=== PATIENT | male | born 1980 | race Hispanic/Latino ===

== ENCOUNTER 2020-12-27 10:03 | Observation (INO) | payer OTHER ==
--- OUTSIDE RECORDS SUMMARY | 2020-12-27 10:14 | XMS REPORT | Continuity of Care Document ---
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 21:25:00 [facility] Systolic (mm Hg) 2020-06-12 14:58:00 [facility] Diastolic (mm Hg) 2020-06-12 14:58:00 [facility] Heart Rate 2020-06-12 14:58:00 [facility] Respitory Rate 2020-06-12 14:58:00 [facility] [place] Height 2020-06-12 14:58:00 190.5 cm [facility] BMI Calculated 2020-06-12 14:58:00 [facility] Weight 2020-06-12 14:58:00 [facility] Weight 2018-08-21 15:12:00 [facility] BMI Calculated 2018-08-21 15:12:00 [facility] [place] Temperature Oral (F) 2018-08-21 15:12:00 98.4 F [facility] Respitory Rate 2018-08-21 15:12:00 [facility] Heart Rate 2018-08-21 15:12:00 [facility] Systolic (mm Hg) 2018-08-21 15:12:00 [facility] Diastolic (mm Hg) 2018-08-21 15:12:00 [facility] Height 2018-08-21 15:12:00 182.88 cm [facility] Weight 2016-10-15 18:54:00 [facility] BMI Calculated 2016-10-15 18:54:00 [facility] Height 2016-10-15 18:54:00 190.5 cm [facility] Systolic (mm Hg) 2016-10-15 18:54:00 [facility] Diastolic (mm Hg) 2016-10-15 18:54:00 [facility] Respitory Rate 2016-10-15 18:54:00 [facility] Height 2016-09-20 14:31:00 190.5 cm [facility] BMI Calculated 2016-09-20 14:31:00 [facility] Weight 2016-09-20 14:31:00 [facility] Heart Rate 2016-09-20 14:31:00 [facility] Systolic (mm Hg) 2016-09-20 14:31:00 [facility] Diastolic (mm Hg) 2016-09-20 14:31:00 [facility] Weight 2016-07-19 16:27:00 [facility] BMI Calculated 2016-07-19 16:27:00 [facility] Height 2016-07-19 16:27:00 190.5 cm [facility] Systolic (mm Hg) 2016-07-19 16:27:00 [facility] Diastolic (mm Hg) 2016-07-19 16:27:00 [facility] Heart Rate 2016-07-19 16:27:00 [facility] Temperature Oral (F) 2016-07-19 16:27:00 98.8 F [facility] Respitory Rate 2016-07-19 16:27:00 [facility] Weight 2012-10-18 16:33:00 [facility] Height 2012-10-18 16:33:00 187.96 cm [facility] Respitory Rate 2012-10-18 16:33:00 [facility] Systolic (mm Hg) 2012-10-18 16:33:00 [facility] Diastolic (mm Hg) 2012-10-18 16:33:00 [facility] Heart Rate 2012-10-18 16:33:00 [facility] Weight 2012-09-04 19:55:00 [facility] Height 2012-09-04 19:55:00 187.96 cm [facility] Respitory Rate 2012-09-04 19:53:00 [facility] Heart Rate 2012-09-04 19:53:00 [facility] Diastolic (mm Hg) 2012-09-04 19:53:00 [facility] Systolic (mm Hg) 2012-09-04 19:53:00 [facility] Diastolic (mm Hg) 2012-08-28 19:56:00 [facility] Systolic (mm Hg) 2012-08-28 19:56:00 [facility] Heart Rate 2012-08-28 19:56:00 [facility] Respitory Rate 2012-08-28 19:56:00 [facility] [place] Height 2012-08-28 19:56:00 187.96 cm [facility] Weight 2012-08-28 19:56:00 [facility] Weight 2012-05-29 19:32:00 [facility] Height 2012-05-29 19:32:00 187.96 cm [facility] Heart Rate 2012-05-29 19:32:00 [facility] Respitory Rate 2012-05-29 19:32:00 [facility] Diastolic (mm Hg) 2012-05-29 19:32:00 [facility] Systolic (mm Hg) 2012-05-29 19:32:00 [facility] Weight 2012-02-25 14:51:00 [facility] Height 2012-02-25 14:51:00 187.96 cm [facility] Diastolic (mm Hg) 2012-02-25 14:51:00 [facility] Systolic (mm Hg) 2012-02-25 14:51:00 [facility] Temperature Oral (F) 2012-02-25 14:51:00 97.7 F [facility] Heart Rate 2012-02-25 14:51:00 [facility] Respitory Rate 2011-11-17 15:00:00 [facility] Diastolic (mm Hg) 2011-11-17 15:00:00 [facility] Systolic (mm Hg) 2011-11-17 15:00:00 [facility] Respitory Rate 2011-11-17 14:45:00 [facility] Diastolic (mm Hg) 2011-11-17 14:45:00 [facility] Systolic (mm Hg) 2011-11-17 14:45:00 [facility] Respitory Rate 2011-11-17 14:30:00 [facility] Systolic (mm Hg) 2011-11-17 14:30:00 [facility] Diastolic (mm Hg) 2011-11-17 14:30:00 [facility] Temperature Oral (F) 2011-11-17 12:17:00 97.0 F [facility] Heart Rate 2011-11-17 12:17:00 [facility] Weight 2011-11-17 12:15:00 [facility] Height 2011-11-17 12:15:00 187.96 cm [facility] Weight 2011-11-10 18:40:00 [facility] Height 2011-11-10 18:40:00 187.96 cm [facility] Weight 2011-10-01 18:17:00 [facility] Height 2011-10-01 18:17:00 187.96 cm [facility] Temperature Oral (F) 2011-10-01 18:17:00 98.4 F [facility] Diastolic (mm Hg) 2011-10-01 18:17:00 [facility] Heart Rate 2011-10-01 18:17:00 [facility] Systolic (mm Hg) 2011-10-01 18:17:00 [facility] Weight 2011-09-20 18:06:00 [facility] Height 2011-09-20 18:06:00 187.96 cm [facility] Diastolic (mm Hg) 2011-09-20 18:06:00 [facility] Systolic (mm Hg) 2011-09-20 18:06:00 [facility] Respitory Rate 2011-09-20 18:06:00 [facility] Heart Rate 2011-09-20 18:06:00 [facility] Rate 2011-08-03 17:06:00 [facility] Systolic (mm Hg) 2011-08-03 17:06:00 [facility] Diastolic (mm Hg) 2011-08-03 17:06:00 [facility] Temperature Oral (F) 2011-08-03 17:06:00 98.3 F [facility] Respitory Rate 2011-08-03 17:06:00 [facility] Weight 2011-08-03 16:56:00 [facility] Height 2011-08-03 16:56:00 187.96 cm [facility] Heart Rate 2011-04-21 14:44:00 [facility] Diastolic (mm Hg) 2011-04-21 14:44:00 [facility] Systolic (mm Hg) 2011-04-21 14:44:00 Y[facility] walker [facility] Height 2011-04-21 14:44:00 187.96 cm [facility] Weight 2011-04-21 14:44:00 [facility] Procedures Procedure Date / Time Performed Performing Clinician Tari lazaro Bladder augmentation 2011-07-28 06:00:00 Ivory barragan [facility] Col[facility] Flap graft<sup>1</sup> [facility] Flap graft <sup>1</sup> [facility] Plan of Care Planned Activity Planned Date Details Comments Source Future Scheduled 2021-01-25 INFLUENZA VACCINE [place] [facility] 00:00:00 [code = INFLUENZA VACCINE] Future Scheduled 1994 COVID-19 VACCINE (1) Hilario stewart [facility] 00:00:00 [code = COVID-19 VACCINE (1)] Encounters Start End Encounter Admission Attending Care Care Encounter Source Date/Time Date/Time Type Type Clinicians Facility Department ID 2020-10-29 2020-10-29 Orders Doctor RIYA [id number] 00:00:00 00:00:00 Only Unassigned, ERIKA [id number] [place] [id number] 2020-10-14 2020-10-22 Outpatient Cam[place], [facility] [id number] 17:03:00 16:30:00 [facility] 2020-10-14 2020-10-14 Outpatient Camargo, [facility] [id number] 17:03:00 17:03:00 [facility] 2020-10-14 2020-10-14 Inpatient [facility] [id number] 17:03:00 06:00:00 2020-10-13 2020-10-13 Outpatient [facility], [facility] [id number] 11:48:00 23:59:00 Patrick Tello 2020-09-01 2020-09-01 Orders Doctor RIYA [id number] 00:00:00 00:00:00 Only Unassigned, ERIKA [id number] [place] [id number] [id number] 2020-08-05 2020-08-06 [facility] [id number] 11:35:00 13:28:00 Encounter Lexi Sawant [id number] [place] [id number] [place] [id number] 2020-06-12 2020-06-12 Outpatient Mitchell, [facility] M[facility] [id number] 08:40:00 23:59:00 Irene [address] [place] 2020-05-14 2020-05-14 Outpatient [facility], [facility] [id number] 10:20:00 23:59:00 Patrick 68 [place] 2019-11-12 2019-11-12 Outpatient [place], [facility] [id number] 10:29:00 23:59:00 Patrick 67 [place] 2019-05-18 2019-05-18 Outpatient [place], [facility] [id number] 11:31:00 23:59:00 Patrick 65 [place] 2018-11-22 2018-11-22 Outpatient [place], [facility] [id number] 09:58:00 23:59:00 Patrick 64 [place] 2018-08-21 2018-08-21 Outpatient [place], [facility] [id number] 09:01:00 23:59:00 Patrick 62 [place] 2018-06-12 2018-06-12 Outpatient [place], [facility] [id number] 13:55:00 23:59:00 Patrick 61 [place] 2018-01-03 2018-01-03 Outpatient [place], [facility] [id number] 10:37:00 23:59:00 Patrick 60 [place] 2017-09-12 2017-09-12 Outpatient [place], [facility] [id number] 09:15:00 09:15:00 Patrick 59 [place] 2017-07-25 2017-07-25 Outpatient [place], [facility] [id number] 10:26:00 23:59:00 Patrick 58 [place] 2017-07-25 2017-07-25 Outpatient [place], [facility] [id number] 10:26:00 23:59:00 Patrick 58 [place] 2017-02-14 2017-02-14 Outpatient [place], [facility] [id number] 13:46:00 23:59:00 Patrick 57 [place] 2016-09-20 2016-10-19 Outpatient [place], [facility] [id number] 08:00:00 23:59:00 Patrick 01 [place] 2016-10-15 2016-10-15 Outpatient Maximilian, [facility] [id number] 13:28:00 23:59:00 Junior 55 [place] 2016-09-06 2016-09-06 Outpatient [facility], [facility] [id number] 09:46:00 23:59:00 Patrick 56 [place] 2016-07-19 2016-07-19 Outpatient [place], [facility] M[facility] [id number] 10:10:00 23:59:00 Patrick 52 [place] 2016-03-29 2016-03-29 Outpatient [place], [facility] M[facility] [id number] 11:47:00 23:59:00 Patrick 51 [place] 2015-10-27 2015-10-27 Outpatient [place], [facility] M[facility] [id number] 12:25:00 23:59:00 Patrick 50 [place] 2015 2015 Outpatient [facility] MHOIH MHOIH [id number] 15:19:00 23:59:00 , Pedro Huerta 2015-05-28 2015-05-28 Outpatient [facility], [facility] M[facility] [id number] 13:00:00 23:59:00 Patrick 49 [place] 2013-12-31 2013-12-31 Outpatient [facility], [facility] [id number] 10:00:00 23:59:00 Patrick 43 [place] 2013-07-09 2013-07-[address] [facility] [id number] Mem[facility] 10:00:00 23:59:00 [facility] Hamm 40 l [facility] [facility] Results Test Description Test Time Test Comments Results Result Comments Source TOXICOLOGY 2020-10-22 14.4 [facility] 10:37:00 CHEM PANEL 2020-10-21 118 [facility] 17:24:00 CHEM PANEL 2020-10-21 24 [facility] 17:24:00 CHEM PANEL 2020-10-21 0.50 [facility] 17:24:00 CHEM PANEL 2020-10-21 138 [facility] 17:24:00 CHEM PANEL 2020-10-21 3.7 [facility] 17:24:00 CHEM PANEL 2020-10-21 103 [facility] 17:24:00 CHEM PANEL 2020-10-21 30 [facility] 17:24:00 CHEM PANEL 2020-10-21 9.0 [facility] 17:24:00 CHEM PANEL 2020-10-21 7.4 [facility] 17:24:00 CHEM PANEL 2020-10-21 2.6 [facility] 17:24:00 CHEM PANEL 2020-10-21 21 [facility] 17:24:00 CHEM PANEL 2020-10-21 14 [facility] 17:24:00 CHEM PANEL 2020-10-21 64 [facility] 17:24:00 CHEM PANEL 2020-10-21 0.2 [facility] nn 17:24:00 CHEM PANEL 2020-10-21 8.7 [facility] nn 17:24:00 CHEM PANEL 2020-10-21 17:24:00 Test Item Value Reference Range Interpretation Comme nts B/C Ratio (test code = B/C Ratio) 48 1 6-25 [facility] FSPOW4262-14-39 17:24:004.8[facility]annCHE[facility] PANEL 2020-10-21 17:24:00 Test Item Value Reference Range Interpretation Comments A/G Ratio (test code = A/G Ratio) 0.5 1 0.7-1.6 [facility] OEZVB4701-69-33 17:24:16178Lvufwjgl HermannCHEM PANEL 2020-10-21 17:24:002.0[facility]annCHE[facility] HSSWZ3128-99-35 17:24:003.1[facility] AdyrbepXNTAZYMYCS1324-24-82 17:24:0010.2[facility] HceulgdVLACFDBVVH1299-38-55 17:24:003.64[facility] DtwlrhjCEKTQTOVEO4486-02-03 17:24:009.7[facility] YBVPEPZWGW1623-99-38 17:24:0029.8[facility] ZrvitlaSYEDRNBNZM9730-99-92 17:24:00 81.8[facility] NhebhriQVYOLZKRIW4404-95-16 17:24:00 Test Item Value Reference Range Interpretation Comments MCH (test code = MCH) 26.5 pg 27.0-31.0 [facility] IwiryckNWLNAWTDLB3497-05-96 17:24:0032.5[facility]annHEMATOLOGY 2020-10-21 17:24:0014.8[facility] InatregCFGSMZSLIG2099-01-04 17:24:38067Pwpvktnz ZlhoyxdCJATTNSRHI2884-45-94 17:24:006.7[facility] CtfbpguBRFEQGGTQZ0599-01-97 17:24:0078.4[facility] WyzwrplFRDPQTEHWF4557-77-54 17:24:0010.2[facility] EVVKBCQBCJ2119-17-07 17:24:009.9[facility] YijwtxwDMRQMQWOUL3336-14-02 17:24:000.5 [facility] TqrejdzTVWYDBHGOM2352-35-33 17:24:001.0[facility]annHEMATOLOGY 2020-10-21 17:24:008.0[facility] UmyzflcPEAPRJAWLL5885-04-39 17:24:001.0[facility] AlejbfuWHIOHEEQPL9031-56-47 17:24:001.0[facility] TkvnpceGPJEYTZVIE2884-13-70 17:24:000.1[facility] QmjcaozBUXQILPAEW0830-59-69 10:58:0028.3[facility] XIEPUNGMYF4880-01-54 11:54:0029.6[facility] HermannBACTERIAL - WZKKLJZL6527-59-64 23:28:00Negative (10/15/20 6:28 PM)[facility]annCHEM EFEEG0220-95-31 10:15:00 112[facility]annCHEM WUHMJ7473-72-90 10:15:0013[facility]annCHEM PANEL 2020-10-15 10:15:000.40[facility]annCHEM DIOAX5950-26-69 10:15:86595Ibhhznfi HermannCHEM RZMUE8645-76-36 10:15:004.1[facility]annCHEM PIWDA2908-48-97 10:15:70312Pgbqikxs HermannCHEM XYHGT8534-04-11 10:15:0027[facility]annCHEM VTDFH4867-02-38 10:15:008.7[facility]annCHEM COWCL6826-79-87 10:15:007.1 [facility] PHUMF4166-56-81 10:15:002.4[facility]annCHEM PANEL 2020-10-15 10:15:0015[facility]annCHEM FQGCM2663-15-13 10:15:0014[facility]annCHEM DVOKA3715-19-25 10:15:0057[facility]annCHEM PLZUX5616-43-00 10:15:000.3[facility]annCHEM YORJL0156-93-95 10:15:0011.1[facility]annCHEM XZBGZ6648-84-45 10:15:00 Test Item Value Reference Range Interpretation Comments B/C Ratio (test code = B/C Ratio) 32 1 6-25 [facility] JLXHD2659-18-55 10:15:004.7[facility]annCHEM PANEL 2020-10-15 10:15:00 Test Item Value Reference Range Interpretation Comments A/G Ratio (test code = A/G Ratio) 0.5 1 0.7-1.6 [facility] RENPM9021-36-20 10:15:76185Lxoiymep HermannHEMATOLOGY 2020-10-15 10:15:007.7[facility] WltglvnXUMCQPANOL6643-67-61 10:15:003.38[facility] QyeqzakOKZDLJMIKO5604-82-06 10:15:009.1[facility] XqbyxdsHWBFFVOYAL6697-17-73 10:15:0028.2[facility] EocvexzZBITXHOEGH3180-72-83 10:15:0083.5[facility] CSSFBOFCCF3477-57-25 10:15:00 Test Item Value Reference Range Interpretation Comments MCH (test code = MCH) 26.8 pg 27.0-31.0 [facility] MnsfmfhNTZJEOAGLN3125-00-11 10:15:0032.1[facility]annHEMATOLOGY 2020-10-15 10:15:0014.8[facility] CuhroigKHTMBFINKH5682-28-13 10:15:21747Mesnynil MwlmwlpJHFSGBHWGW7777-77-66 10:15:007.7[facility] HermannSPECIAL CHEMISTRY 2020-10-15 10:15:005.5[facility] SrrrgmaUJPDQDNIICHL3955-91-99 18:56:23376Zezyzsda EkzatfiEMAVXORNGBMG5650-07-46 18:56:004.5[facility] PnnadkvYLQPFEXSSQLQ9926-13-63 18:56:0095[facility] BywqzylJHPDVGQVETSZ8404-72-36 18:56:0033[facility] ZMWKUJHFTCML6578-59-69 18:56:0012[facility] JpgkmyiPJISAICMDQPD0473-43-33 18:56:00 0.6[facility] OnfmwtzDEJJEEIOSSBW9639-53-09 18:56:73196Cwaohadg [facility] DQEVQOVZYNNY7609-22-37 18:56:001.14[facility] OkguwdtJRTYIITZWZNM4470-42-76 18:56:0012.9[facility] MuwkadnGYXPTKYRQXJO4953-52-18 18:56:0038.0[facility] XITASPKSAPGY5657-55-72 18:56:0012.0[facility] XubxwbzYWGLPKHCDOZZ5965-28-37 18:56:80155Ewdmkguf TjtiaqaTSFFNKPGRXMY3184-81-90 18:56:00See Note *NA*(10/14/20 1:56 PM)[facility] CuvhriyEMQTYOPXQI0402-71-32 17:40:00Not Detected (10/14/20 12:40 PM)[facility]annCHEM NMVLK1616-93-17 15:34:0016[facility] HermannCHEM PANEL 2020-06-12 15:34:003.1[facility]annCHEM AZROF8283-90-12 15:34:0069[facility]annCHEM EAWIC1231-79-63 15:34:0085[facility] HermannCHEM OKENG3989-96-29 15:34:0025[facility] HermannCHEM AXRLW4093-66-16 15:34:000.52[facility]annCHEM VONPF9852-69-32 15:34:82331Kyopburs HermannCHEM BSYPZ4554-87-52 15:34:004.0 [facility]annCHE[facility] PBIIX1135-33-74 15:34:09629Blvxiwzh HermannCHEM PANEL 2020-06-12 15:34:0031[facility] HermannCHEM KKEIJ2305-27-81 15:34:008.5[facility]annCHEM DYVSS7317-72-74 15:34:000.1[facility]annCHEM GEFGJ5516-17-34 15:34:006.7[facility] HermannCHEM NFIVM7553-69-43 15:34:0014[facility]annCHEM GCZSD6239-71-96 15:34:006.0[facility]annCHEM XZJHY6528-51-19 15:34:00 Test Item Value Reference Range Interpretation Comments B/C Ratio (test code = B/C Ratio) 48 1 6-25 [facility] HermannCHEM EZNSG9870-94-17 15:34:003.6[facility] HermannCHEM PANEL 2020-06-12 15:34:00 Test Item Value Reference Range Interpretation Comments A/G Ratio (test code = A/G Ratio) 0.9 1 0.7-1.6 [facility]annCHE[facility] ZXVLG3696-54-05 15:34:01836Ykovvjuw HermannHEMATOLOGY 2020-06-12 15:34:0016[facility] UhcgytrORAFKEGYQY8137-53-65 15:34:004.5[facility] UmcpjdhJHODDDZIHS1955-50-11 15:34:003.58[facility] RvzsfxkNXHVNWYROJ5370-95-35 15:34:0010.9[facility] DescrhkUHWGSYOOWE7672-61-78 15:34:0032.6[facility] KWTKFSCKQF0018-55-04 15:34:0091.1[facility] NevjmazZHVVRCQNVR6645-70-93 15:34:00 Test Item Value Reference Range Interpretation Comments MCH (test code = MCH) 30.3 pg 27.0-31.0 [facility] OylwqwpJVYGDROLLY0349-03-45 15:34:0033.3[facility] HermannHEMATOLOGY 2020-06-12 15:34:0016.0[facility] IhyjtdpIAHUPODIHR1814-84-90 15:34:37842Blilihir GywqnlzEPDWUETCXY0949-63-95 15:34:009.2[facility] KostithJAARJTFDKE9064-32-35 15:34:006.9[facility] BjljlriCGXBTIUIGH4265-53-74 15:34:0015.4[facility] EKMLUCYPMF5032-57-79 12:38:00Few /LPF *NA*(11/17/2011 07:38:00)[facility] HCAPLTTNIV7573-26-52 12:38:00Occasional /HPF *NA*(11/17/2011 07:38:00)[facility] VxekeqwQFNPYCHMQX3666-83-37 12:38:004[facility] WomucagKSROWRJOPU7777-33-63 12:38:00Few /LPF *NA*(11/17/2011 07:38:00)[facility] NwxjtyqFJOZCHBZCD1080-88-98 12:38:001[facility] WsoahbbADXKBSLOUG2446-28-18 12:38:00Negative mg/dL (11/17/2011 07:38:00)[facility] QbsrdhrLQELPDLWUH7558-14-12 12:38:006.5[facility] GSLPCTLVUE0136-19-00 12:38:00Clear (11/17/2011 07:38:00)[facility] OGMDVUVWVR6938-78-39 12:38:00Yellow *NA*(11/17/2011 07:38:00)[facility] EKPOALAJOE9153-16-80 12:38:001.018[facility] WxrgmzmZVHDGAAQCM0997-57-15 12:38:00 Negative mg/dL *NA*(11/17/2011 07:38:00)[facility] JqbggngEPEWMOVTVZ6502-55-38 12:38:00Negative mg/dL *NA*(11/17/2011 07:38:00)[facility] HermannURINALYSIS 2011-11-17 12:38:00Negative (11/17/2011 07:38:00)[facility]annURINALYSIS 2011-11-17 12:38:00Negative (11/17/2011 07:38:00)[facility] HermannURINALYSIS 2011-11-17 12:38:00Negative *NA*(11/17/2011 07:38:00)[facility]annURINALYSIS 2011-11-17 12:38:00Negative (11/17/2011 07:38:00)[facility]annCHEMISTRY 2011-11-17 12:15:97249Yiznzkpk SrjujmnDOWIMGWIY4379-19-10 12:15:000.7[facility] AqaetbzKFKTWTHYS3958-10-30 12:15:004.0[facility] NmdbosqOYMSSIMKH0159-07-12 12:15:0017[facility] AzkeifsWAVNCRVQO0159-58-07 12:15:0091[facility] YLXFEIERS2818-79-81 12:15:008.7[facility] JyxjspqVVKPQYUIR0498-30-48 12:15:000.3 [facility] FvxpenaMQQYXUYOZ9597-66-93 12:15:0030[facility] HermannCHEMISTRY 2011-11-17 12:15:54364Cptbfios XnodriwYODYSSDLW6105-45-32 12:15:0024[facility] XpbqpmfYQATTXOCI3719-90-27 12:15:0011.0[facility] RzcwcdmQDMVRUYBS5016-41-96 12:15:0012[facility] UdfmryjLKVRVMUYB1372-08-03 12:15:006.4[facility] SZVSEUROH2342-41-37 12:15:001.3[facility] OxtagugOBQAUFWNS9885-79-82 12:15:002.8 [facility] YoaikkxKQJNAXXNR3655-07-65 12:15:003.6[facility] HermannCHEMISTRY 2011-11-17 12:15:0051[facility] HmuzmvjKCFYWMODK5205-81-33 12:15:0021[facility] LnkpfsrUBUFOYDNEX6073-75-97 12:15:0010.0[facility] HydmlavIEQZSRERYO6111-29-76 12:15:78998Apfqruhm NphfwurURSIPTYEZL8759-67-80 12:15:0014.7[facility] IOMPJHMGLZ6221-10-75 12:15:0033.1[facility] GbwxhlqCZHHADVFLC3271-60-13 12:15:00 Test Item Value Reference Range Interpretation Comments MCH (test code = MCH) 30.8 pg 27.0-31.0 N [facility] LvsqqemHLYKVSZCOG8762-74-49 12:15:0093.0[facility] HermannHEMATOLOGY 2011-11-17 12:15:0039.0[facility] BpclkdvFRSBQBTSVE2406-07-65 12:15:0012.9[facility] PnfztbfZUCELTVCVI5576-48-04 12:15:004.19[facility] MoxbjgaPERBGCGDMB5457-53-81 12:15:006.1[facility] DopoeaxQAVZWNJQMK3120-77-46 19:30:003-5 /HPF (09/20/2011 14:30:00)[facility] VzobnapNGLZQLEPGF4339-25-32 19:30:00Few /LPF (09/20/2011 14:30:00)[facility] OeajfcuYZCYVNEBTU3145-51-39 19:30:00Occasional /HPF (09/20/2011 14:30:00)[facility] EauglteSDWTNIFULY3963-83-50 19:30:000-2 /HPF (09/20/2011 14:30:00)[facility] EstinupOOJAPTBPOT2698-42-53 19:30:00Performed (09/20/2011 14:30:00)[facility] QrespjeWGRDZRTTXZ2493-81-83 19:30:00Rare /LPF (09/20/2011 14:30:00)[facility] VrkinsxIDGGMBYMGY0681-17-73 19:30:00Negative (09/20/2011 14:30:00)[facility] NmodrmkOBKTQRVVAG2729-45-84 19:30:00Negative (09/20/2011 14:30:00)[facility] QzdtagcKFYSIBJAUB2068-69-86 19:30:00Negative *NA*(09/20/2011 14:30:00)[facility]SdfwwjfCUPWKZLCLI2968-27-92 19:30:00Negative (09/20/2011 14:30:00)[facility]ooVSVFSYDDER8286-91-15 19:30:001.0[facility] SivrqtnCSCXFNADOB1918-97-57 19:30:00Slight Cloudy (09/20/2011 14:30:00)[facility]landPehvhmhQDEIMJYQYF8349-42-21 19:30:00Dark Yellow (09/20/2011 14:30:00)[facility]landUeauqawBVAILRJZQP4775-52-63 19:30:00Negative (09/20/2011 14:30:00)[facility]landMhoxwvxKWXTWCMSXE9447-48-77 19:30:00 Test Item Value Reference Range Interpretation Comments UA pH (test code = UA pH) 7.5 1 5.0-8.0 N [facility]villeCtjtqbwTQQOMQNMFC7636-10-42 19:30:00 Test Item Value Reference Range Interpretation Comments UA Spec Grav (test code = UA Spec 1.015 1 N Grav) [facility]landKkeieeoNWSQAQSNUK7693-44-79 19:30:00Negative (09/20/2011 14:30:00) [facility]RrgzecdSAHQHRRTQA4546-94-58 19:30:00Trace *ABN*(09/20/2011 14:30:00) [facility]
[2020-12-27] MEDS ORDERED: ONDANSETRON 4 MG/2 ML VIAL ONE ×3 (10:53→16:32)
[2020-12-27] MEDS ORDERED: FENTANYL CITR 100 MCG/2 ML ONE (10:53)
[2020-12-27] MEDS ORDERED: NA CHLORIDE 0.9% 1,000 ML ONE (10:54)
[2020-12-27 11:02] LABS: Absolute Lymphocytes (CBC) 0.3 K/uL (0.7-4.9); Basophils % 0.3 % (0-1.3); Hematocrit 32.7 % (39.6-49.0); Lymphocytes % 2.4 % (15.3-44.8); MPV 7.4 fL (7.6-11.3)
[2020-12-27 11:18] LABS: ALT/SGPT 18 U/L (12-78); AST/SGOT 15 U/L (15-37); Albumin 3.1 g/dL (3.4-5.0); Alkaline Phosphatase 102 U/L (45-117); BUN Blood Urea Nitrogen 24 mg/dL (7-18); Bicarbonate 29 mmol/L (21-32); Bilirubin Direct 0.1 mg/dL (0-0.2); Bilirubin Total 0.4 mg/dL (0.2-1.0); Glucose Level 181 mg/dL (74-106); Lipase 21 U/L (73-393); Potassium 4.4 mmol/L (3.5-5.1); Protein, Total 8.5 g/dL (6.4-8.2); Sodium Level 134 mmol/L (136-145)
--- NOTE | 2020-12-27 11:55 | RAD REPORT ---
EXAM DESCRIPTION: CTAbdomen Pelvis W Contrast - 12/27/2020 11:25 am CLINICAL HISTORY: Abdominal pain. abdominal pain COMPARISON: 09/23/2016 TECHNIQUE: Biphasic CT imaging of the abdomen and pelvis was performed with 100 ml non-ionic IV cont rast. All CT scans are performed using dose optimization technique as appropriate and may include automated exposure control or mA/KV adjustment according to patient size. FINDINGS: The lung bases are clear. The liver, spleen, pancreas, adrenal glands and kidneys are within normal limits. Significant dilatation of the stomach and small bowel loops are present compatible with a moderately severe mechanical small bowel obstruction. No evidence of free intraperitoneal air. Significant retai krystle stool is present throughout the colon with a left lower quadrant colostomy site noted. No intra-a bdominopelvic abscess. No evidence of significant lymphadenopathy. Chronic deformity and dislocation of the left hip with moderate left hip joint effusion. IMPRESSION: Moderate to severe mechanical small-bowel obstruction is evident. No free intraperitone al air. 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
--- NOTE | 2020-12-27 12:10 | ER ---
Nurse's Notes [facility] Name: Zachary Amado Age: 40 yrs Sex: Male : 1980 Arrival Date: 12/27/2020 Time: 10:05 Bed 5 Private MD: Diagnosis: Bowel Obstruction Presentation: 12/27 10:01 Chief complaint: EMS states: diffuse abd pain since last night and vomiting started 1 sv hour ago. Unable to eat or drink. [id number]. Coronavirus screen: Client denies travel out of the [place] in the last 14 days. At this time, the client does not indicate any symptoms associated with coronavirus-19. Ebola Screen: No symptoms or risks identified at this time. Risk Assessment: Do you want to hurt yourself or someone else? Patient reports no desire to harm self or others. Onset of symptoms was December 26, 2020. 10:01 Method Of Arrival: EMS: [facility] sv 10:01 Acuity: MICHEL 2 sv 10:08 Initial Sepsis Screen: Does the patient meet any 2 criteria? No. Patient's initial jd3 sepsis screen is negative. Does the patient have a suspected source of infection? No. Patient's initial sepsis screen is negative. Historical: - Allergies: 10:10 No Known Allergies; sv - Home Meds: 10:07 Valium Oral [Active]; hydrocodone-acetaminophen 10-325 mg Oral tab [Active]; Restoril sv Oral [Active]; morphine 30 mg Oral tab [Active]; - PMHx: 10:07 bowel obstruction; C7 tetraplegic; Colostomy; sv - PSHx: 10:07 Left hip; sv - Immunization history:: Client reports having NOT received the Covid vaccine. - Social history:: Smoking status: Patient denies any tobacco usage or history of. Patient/guardian denies using alcohol, street drugs. Screenin:20 Abuse screen: Denies threats or abuse. Nutritional screening: No deficits noted. ll1 Tuberculosis screening: No symptoms or risk factors identified. Fall Risk IV access (20 points). Ambulatory Aid- Crutches/Cane/Walker (15 pts). Gait- Weak (10 pts.). Total Naranjo Fall Scale indicates High Risk Score (45 or more points). Fall prevention measures have been instituted. Side Rails Up X 2 Frequent Obs/Assessments Occuring As available patient and family educated on Fall Prevention Program and Strategies. Assessment: 10:19 General: Appears uncomfortable, ill, slender, Behavior is appropriate for age. Pain: ll1 Complains of pain in abdomen Quality of pain is described as aching, crampy. Neuro: No deficits noted. Cardiovascular: No deficits noted. Respiratory: No deficits noted. GI: Abdomen is flat, Bowel sounds present X 4 quads. Abd is soft Abdomen is tender to palpation X 4 quads. Reports lower abdominal pain, upper abdominal pain, nausea, vomiting. 11:20 Reassessment: No changes from previously documented assessment. Patient and/or family ll1 updated on plan of care and expected duration. Pain level reassessed. Patient is alert, oriented x 3, equal unlabored respirations, skin warm/dry/pink. 12:20 Reassessment: No changes from previously documented assessment. Patient and/or family ll1 updated on plan of care and expected duration. Pain level reassessed. Patient is alert, oriented x 3, equal unlabored respirations, skin warm/dry/pink. 13:20 Reassessment: No changes from previously documented assessment. Patient and/or family ll1 updated on plan of care and expected duration. Pain level reassessed. Patient is alert, oriented x 3, equal unlabored respirations, skin warm/dry/pink. 14:20 Reassessment: No changes from previously documented assessment. Patient and/or family ll1 updated on plan of care and expected duration. Pain level reassessed. Patient is alert, oriented x 3, equal unlabored respirations, skin warm/dry/pink. 15:20 Reassessment: No changes from previously documented assessment. Patient and/or family ll1 updated on plan of care and expected duration. Pain level reassessed. Patient is alert, oriented x 3, equal unlabored respirations, skin warm/dry/pink. 15:53 Reassessment: Attempted to call report, nurse unavailable. sv 16:20 Reassessment: No changes from previously documented assessment. Patient and/or family ll1 updated on plan of care and expected duration. Pain level reassessed. Patient is alert, oriented x 3, equal unlabored respirations, skin warm/dry/pink. Vital Signs: 10:01 Weight 54.43 kg; Height 6 ft. 2 in. (187.96 cm); Pain 10/10; sv 10:08 BP 91 / 62; Pulse 119; Resp 19 S; Temp 98.6(TE); Pulse Ox 97% on R/A; jd3 12:30 BP 129 / 79; Pulse 113; Resp 18; Temp 98.5; Pulse Ox 100% ; ll1 16:21 BP 96 / 51; Pulse 105; Resp 18; Pulse Ox 97% on R/A; ll1 10:01 Body Mass Index 15.41 (54.43 kg, 187.96 cm) sv ED Course: 10:05 Patient arrived in ED. sv 10:07 Triage completed. sv 10:07 Patrick Dobbins PA is PHCP. jmm 10:07 Fredrick Coates MD is Attending Physician. jmm 10:08 Ravi Gibson, NATIVIDAD is Primary Nurse. jd3 10:08 Arm band placed on. jd3 10:19 Ramesh Perkins, NATIVIDAD is Primary Nurse. ll1 10:20 Patient has correct armband on for positive identification. Bed in low position. Call ll1 light in reach. Side rails up X 1. Pulse ox on. NIBP on. 10:47 Missed attempt(s): 20 gauge in left antecubital area. mt 10:55 Inserted saline lock: 22 gauge in right wrist, using aseptic technique. Blood collected.ll1 11:25 CT Abd/Pelvis - IV Contrast Only In Process Unspecified. EDMS 12:09 Robyn Cyr MD is Hospitalizing Provider. m 12:31 Missed attempt(s): 22 gauge in left upper arm. Bleeding controlled, band aid applied, ll1 catheter tip intact. 13:00 Castelan cath inserted, using sterile technique, 16 Fr., by al, balloon inflated, Patient ll1 tolerated well. 14:00 flushed castelan cath. Started to flow freely now. ll1 16:18 No provider procedures requiring assistance completed. Patient admitted, IV remains in sv place. intact. Administered Medications: 10:53 Drug: NS 0.9% 1000 ml Route: IV; Rate: 1 bolus; Site: right wrist; ll1 14:22 Follow up: Response: No adverse reaction; IV Status: Completed infusion; IV Intake: ll1 1000ml 10:53 Drug: Zofran (Ondansetron) 4 mg Route: IVP; Site: right wrist; ll1 14:21 Follow up: Response: No adverse reaction; RASS: Alert and Calm (0) ll1 10:54 Drug: fentaNYL (PF) 50 mcg Route: IVP; Site: right wrist; ll1 14:22 Follow up: Response: No adverse reaction ll1 12:40 Drug: fentaNYL (PF) 50 mcg Route: IVP; Site: right wrist; ll1 14:21 Follow up: Response: No adverse reaction ll1 13:18 Drug: Zofran (Ondansetron) 4 mg Route: IVP; Site: right wrist; ll1 14:21 Follow up: Response: No adverse reaction ll1 16:22 Drug: Mineral Oil Enema 60 ml Route: AZ; ll1 16:31 Follow up: Response: No adverse reaction; RASS: Alert and Calm (0) ll1 Intake: 14:22 IV: 1000ml; Total: 1000ml. ll1 Outcome: 12:10 Decision to Hospitalize by Provider. keven 16:17 Admitted to Med/surg via stretcher, room 212, with chart, Report called to KATHY HENSON 16:17 Condition: stable 16:17 Instructed on the need for admit. 16:44 Patient left the ED. sv Signatures: Dispatcher [employer] EDEvangelina Huber RN RN Patrick Carrington PA PA jmm Thompson, Moriah mt Davies, Jonathon, RN RN jd3 Lewis, Lynsay, RN RN ll1 Corrections: (The following items were deleted from the chart) 10:09 10:07 Home Meds: Cipro 500 mg Oral tab 1 tab every 12 hours; sv 10: 10:07 Home Meds: Flagyl Oral; sv 10: 10:07 Home Meds: Hydrocodone-Acetaminophen 5/500 Oral; sv sv 10: 10:01 Acuity: MICHEL 3 sv sv 10: 10:07 Allergies: Doxycycline; sv sv
--- NOTE | 2020-12-27 12:10 | EDPHYS ---
Physician Documentation [facility] Name: Zachary Amado Age: 40 yrs Sex: Male : 1980 Arrival Date: 12/27/2020 Time: 10:05 Bed 5 Private MD: ED Physician Fredrick Coates HPI: 12/27 11:05 This 40 yrs old Male presents to ER via EMS with complaints of Abdominal Pain, jmm Vomiting. 11:05 The patient presents with abdominal pain. Onset: The symptoms/episode began/occurred jmm today. The symptoms do not radiate. Associated signs and symptoms: Pertinent positives: nausea and vomiting, diarrhea. The symptoms are described as achy, sharp. Modifying factors: The symptoms are alleviated by nothing, the symptoms are aggravated by nothing. This is a 40 year old male with a history of bowel obstruction, quadraplegia that presents to the ED with complaints of diffuse abdominal pain, vomiting, increased colostomy output. Patient states pain is similar to previous bowel obstructions. . Historical: - Allergies: 10:10 No Known Allergies; sv - Home Meds: 10:07 Valium Oral [Active]; hydrocodone-acetaminophen 10-325 mg Oral tab [Active]; Restoril sv Oral [Active]; morphine 30 mg Oral tab [Active]; - PMHx: 10:07 bowel obstruction; C7 tetraplegic; Colostomy; sv - PSHx: 10:07 Left hip; sv - Immunization history:: Client reports having NOT received the Covid vaccine. - Social history:: Smoking status: Patient denies any tobacco usage or history of. Patient/guardian denies using alcohol, street drugs. ROS: 11:05 Constitutional: Negative for fever, chills, and weight loss, Cardiovascular: Negative jmm for chest pain, palpitations, and edema, Respiratory: Negative for shortness of breath, cough, wheezing, and pleuritic chest pain. 11:05 Abdomen/GI: Positive for abdominal pain, nausea and vomiting, diarrhea. 11:05 All other systems are negative. Exam: 11:05 Constitutional: This is a well developed, well nourished patient who is awake, alert, jmm and in no acute distress. Head/Face: atraumatic. Eyes: EOMI, no conjunctival erythema appreciated ENT: Moist Mucus Membranes Neck: Trachea midline, Supple Chest/axilla: Normal chest wall appearance and motion. Cardiovascular: Regular rate and rhythm. No edema appreciated Respiratory: Normal respirations, no respiratory distress appreciated 11:05 Skin: General appearance color normal MS/ Extremity: Moves all extremities, no obvious deformities appreciated, no edema noted to the lower extremities Neuro: Awake and alert, normal gait Psych: Behavior is normal, Mood is normal, Patient is cooperative and pleasant 11:05 Abdomen/GI: Palpation: moderate abdominal tenderness, in all quadrants. Vital Signs: 10:01 Weight 54.43 kg; Height 6 ft. 2 in. (187.96 cm); Pain 10/10; sv 10:08 BP 91 / 62; Pulse 119; Resp 19 S; Temp 98.6(TE); Pulse Ox 97% on R/A; jd3 12:30 BP 129 / 79; Pulse 113; Resp 18; Temp 98.5; Pulse Ox 100% ; ll1 16:21 BP 96 / 51; Pulse 105; Resp 18; Pulse Ox 97% on R/A; ll1 10:01 Body Mass Index 15.41 (54.43 kg, 187.96 cm) sv MDM: 10:23 Patient medically screened. [facility] 12:07 Data reviewed: vital signs, nurses notes. Counseling: I had a detailed discussion with [facility] the patient and/or guardian regarding: the historical points, exam findings, and any diagnostic results supporting the discharge/admit diagnosis, lab results, radiology results, the need for further work-up and treatment in the hospital. ED course: I discussed the patient with Dr. Meneses and Dr. Cyr whom accepted the patient to his service. . 12/27 10:23 Order name: Basic Metabolic Panel; Complete Time: 11:22 [facility] 12/27 10:23 Order name: CBC with Diff; Complete Time: 12:47 [facility] 12/27 10:23 Order name: Hepatic Function; Complete Time: 11:22 [facility] 12/27 10:23 Order name: Lipase; Complete Time: 11:22 [facility] 12/27 12:25 Order name: COVID-19 : Document "Date of Symptom Onset" if Symptomatic. sv 12/27 12:45 Order name: Manual Differential; Complete Time: 12:47 [facility] 12/27 13:36 Order name: Comprehensive Metabolic Panel [facility] 12/27 13:36 Order name: Comprehensive Metabolic Panel [facility] 12/27 13:37 Order name: CBC with Automated Diff EDMS 12/27 13:37 Order name: CBC with Automated Diff EDMS 12/27 13:37 Order name: Protime (+INR) [facility] 12/27 13:37 Order name: Protime (+INR) [facility] 12/27 13:37 Order name: PTT, Activated Partial Thromb ED[facility] 12/27 13:37 Order name: PTT, Activated Partial Thromb [facility] 12/27 10:23 Order name: IV Saline Lock; Complete Time: 10:25 [facility] 12/27 10:23 Order name: Labs collected and sent; Complete Time: 10:25 [facility] 12/27 10:24 Order name: CT Abd/Pelvis - IV Contrast Only; Complete Time: 11:58 [facility] 12/27 13:37 Order name: NPO [facility] 12/27 14:52 Order name: SARS-COV-2 RT PCR; Complete Time: 15:01 EDMS Administered Medications: 10:53 Drug: NS 0.9% 1000 ml Route: IV; Rate: 1 bolus; Site: right wrist; ll1 14:22 Follow up: Response: No adverse reaction; IV Status: Completed infusion; IV Intake: ll1 1000ml 10:53 Drug: Zofran (Ondansetron) 4 mg Route: IVP; Site: right wrist; ll1 14:21 Follow up: Response: No adverse reaction; RASS: Alert and Calm (0) ll1 10:54 Drug: fentaNYL (PF) 50 mcg Route: IVP; Site: right wrist; ll1 14:22 Follow up: Response: No adverse reaction ll1 12:40 Drug: fentaNYL (PF) 50 mcg Route: IVP; Site: right wrist; ll1 14:21 Follow up: Response: No adverse reaction ll1 13:18 Drug: Zofran (Ondansetron) 4 mg Route: IVP; Site: right wrist; ll1 14:21 Follow up: Response: No adverse reaction ll1 16:22 Drug: Mineral Oil Enema 60 ml Route: DC; ll1 16:31 Follow up: Response: No adverse reaction; RASS: Alert and Calm (0) ll1 Disposition Summary: 12/27/20 12:10 Hospitalization Ordered Hospitalization Status: Inpatient Admission joanna Provider: Robyn Cyr Location: Telemetry/MedSurg (Inpatient) jmm Condition: Stable jmm Problem: an acute exacerbation jmm Symptoms: are unchanged jmm Bed/Room Type: Standard [facility] Room Assignment: 212(12/27/20 15:16) eb Diagnosis - Bowel Obstruction jmm Forms: - Medication Reconciliation Form jmm - SBAR form jmm Addendum: 12/29/2020 13:39 Co-signature as Attending Physician, Fredrick Coates MD I agree with the assessment and k dr plan of care. Signatures: Dispatcher [employer] Evangelina Velazquez, RN RN Fredrick Coates MD MD [facility] Patrick Dobbins PA PA [facility] Michelle Cardenas Lynsay RN RN ll1 Corrections: (The following items were deleted from the chart) 12/27 10:09 10:07 Home Meds: Cipro 500 mg Oral tab 1 tab every 12 hours; [facility] 10: 10:07 Home Meds: Flagyl Oral; [facility] 10: 10:07 Home Meds: Hydrocodone-Acetaminophen 5/500 Oral; sv 10:10 10:07 Allergies: Doxycycline; [facility] 15:16 12:10 jmm eb
[2020-12-27] MEDS ORDERED: MINERAL OIL ENEMA 135 ML BTL PR ONE (12:34)
[2020-12-27 12:44] LABS: Anisocytosis 1+; Blood Morphology Comment NOTED (NOT SEEN); Platelet Estimate INCR
[2020-12-27] MEDS ORDERED: ACETAMINOPHEN 500 MG TAB PO PRN (13:33)
[2020-12-27] MEDS ORDERED: MORPHINE 2 MG/ML SYR IV PRN (13:33)
[2020-12-27] MEDS ORDERED: HYDROCODONE/APAP 10/325 TAB PO PRN (13:36)
[2020-12-27] MEDS ORDERED: TEMAZEPAM 15 MG CAP PO PRN (13:36)
[2020-12-27] MEDS ORDERED: TIZANIDINE 4 MG TABLET PO PRN (13:36)
[2020-12-27 17:34] VITALS: BMI 16.7
[2020-12-27] MEDS: HYDROMORPHONE HCL 1 MG/ML INJ IV PRN ×2 (17:48→23:04)
[2020-12-27] MEDS: NA CHLORIDE 0.9% 1,000 ML IV SCH (17:48)
[2020-12-27] MEDS ORDERED: MINERAL OIL 30 ML UCUP PO SCH (18:00)
[2020-12-27] MEDS: DIAZEPAM 5 MG TABLET PO SCH ×2 (21:00→23:06)
[2020-12-27] MEDS: ONDANSETRON 4 MG/2 ML VIAL IV PRN (23:04)
[2020-12-28] MEDS: HYDROMORPHONE HCL 1 MG/ML INJ IV PRN ×3 (04:57→12:57)
[2020-12-28 06:18] LABS: Absolute Lymphocytes (CBC) 1.1 K/uL (0.7-4.9); Basophils % 0.6 % (0-1.3); Hematocrit 27.7 % (39.6-49.0); Lymphocytes % 21.8 % (15.3-44.8); MPV 7.9 fL (7.6-11.3); RBC Red Blood Cell Count 3.53 M/uL (4.33-5.43)
[2020-12-28 06:31] LABS: ALT/SGPT 11 U/L (12-78); AST/SGOT 11 U/L (15-37); Albumin 2.7 g/dL (3.4-5.0); Alkaline Phosphatase 80 U/L (45-117); BUN Blood Urea Nitrogen 17 mg/dL (7-18); Bicarbonate 29 mmol/L (21-32); Bilirubin Total 0.3 mg/dL (0.2-1.0); Glucose Level 82 mg/dL (74-106); Potassium 3.7 mmol/L (3.5-5.1); Sodium Level 139 mmol/L (136-145)
[2020-12-28 06:37] LABS: Protime INR 1.56
[2020-12-28] MEDS: NA CHLORIDE 0.9% 1,000 ML IV SCH (06:40)
[2020-12-28] MEDS: ONDANSETRON 4 MG/2 ML VIAL IV PRN ×2 (06:46→12:57)
[2020-12-28 08:40] VITALS: TEMP 97.6
[2020-12-28 09:22] VITALS: O2SAT 100
[2020-12-28] MEDS: DIAZEPAM 5 MG TABLET PO SCH ×2 (09:29→13:51)
[2020-12-28 09:32] VITALS: BP 138/75
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
--- NOTE | 2020-12-28 14:23 | P.DS ---
Discharge Date: 12/28/20 Disposition: ROUTINE DISCHARGE Discharge Condition: GOOD Reason for Admission: Partial small-bowel obstruction - Problems (1) Fecal retention Current Visit: Yes Status: Acute (2) Nausea & vomiting Onset Date: 09/24/16 Current Visit: No Status: Acute (3) Quadriplegia Current Visit: No Status: Acute (4) Small bowel obstruction Onset Date: 09/24/16 Current Visit: No Status: Acute Brief History of Present Illness: Patient is a 40-year-old gentleman came to hospital with a partial small-bowel obstruction. Patient is a paraplegic. Patient is on chronic pain medication. Patient came into the hospital for further evaluation. In the emergency room patient was found have nausea and vomiting and abdominal pain. X-ray revealed fecal retention. Patient was given mineral oil and will monitor him through the night. Hospital Course: Patient did well during hospital stay. General surgery recommended mineral oil and patient had a large bowel movement. He feels much better and is feeling comfortable going home. At this time he is stable for discharge and will discharge him home to take mineral oil and Zofran as needed. Outpatient follow with primary care provider, Dr. Larry. Vital Signs/Physical Exam: Temp Pulse Resp BP Pulse Ox 97.6 F 101 H 16 138/75 96 12/28/20 14:21 12/28/20 14:21 12/28/20 14:21 12/28/20 14:21 12/28/20 14:21 General: Alert, In no apparent distress, Oriented x3 Laboratory Data at Discharge: WBC 4.90 K/uL (4.3-10.9) D 12/28/20 05:49 Hgb 8.8 g/dL (13.6-17.9) L 12/28/20 05:49 Hct 27.7 % (39.6-49.0) L D 12/28/20 05:49 Plt Count 414 K/uL (152-406) H D 12/28/20 05:49 PT 18.0 SECONDS (9.5-12.5) H 12/28/20 05:49 INR 1.56 12/28/20 05:49 APTT 34.0 SECONDS (24.3-36.9) 12/28/20 05:49 Sodium 139 mmol/L (136-145) 12/28/20 05:49 Potassium 3.7 mmol/L (3.5-5.1) 12/28/20 05:49 BUN 17 mg/dL (7-18) 12/28/20 05:49 Creatinine 0.51 mg/dL (0.55-1.3) L 12/28/20 05:49 Glucose 82 mg/dL (74-106) 12/28/20 05:49 Total Bilirubin 0.3 mg/dL (0.2-1.0) 12/28/20 05:49 AST 11 U/L (15-37) L 12/28/20 05:49 ALT 11 U/L (12-78) L 12/28/20 05:49 Alkaline Phosphatase 80 U/L (45-117) 12/28/20 05:49 Lipase 21 U/L (73-393) L 12/27/20 10:45 Home Medications: Hydrocodone 10/APAP 325 [Justice 10/325*] 1 tab PO Q4H 02/07/15 Temazepam [Restoril*] 30 mg PO BEDTIME 02/07/15 Diazepam 1 tab PO TID 09/24/16 Tizanidine [Zanaflex*] 1 tab PO Q6HR 09/24/16 Smz./Tmp. [Bactrim Ds 800 MG/160 MG*] 1 tab PO BID #14 tab 09/26/16 Mineral Oil 30 ml PO Q12HP #1000 ml 12/28/20 Ondansetron [Zofran] 4 mg PO Q6H PRN #30 tab 12/28/20 New Medications: Mineral Oil 30 ml PO Q12HP #1000 ml Ondansetron [Zofran] 4 mg PO Q6H PRN #30 tab PRN Reason: Nausea / Vomiting Physician Discharge Instructions: OK TO DC IV AND DC HOME FOLLOW-UP WITH PRIMARY CARE PROVIDER IN 1-2 WEEKS RETURN TO THE ER IF symptoms worsen CALL or TEXT DR. GONZALEZ AT [phone] IF ANY QUESTIONS REGARDING HOSPITAL STAY. PLEASE CALL THE FLOOR AT [phone] IF ANY MEDICATION OR NURSING QUESTIONS. Diet: Regular Activity: Fall precautions Followup: OOT,OOT [Primary Care Provider] - Time spent managing pt's care (in minutes): 35
== END 2020-12-28 16:10 | disposition home or self-care (01) ==
LOC: ER 10:03 → ERHOLD 13:33 → 2ND 16:19
PROVIDERS: ADMIT Hospitalist; ATTEND Hospitalist
DX: K56.600 Partial intestinal obstruction, unspecified as to cause (principal); G82.50 Quadriplegia, unspecified; F41.9 Anxiety disorder, unspecified; Z20.822 Contact with and (suspected) exposure to COVID-19
CPT/HCPCS: 96361; 85025 ×2; 80048; 36415; 85610; 80076; 85730; 83690; 80053; 74177; 51702; 96375; 96374; 99285; U0003; Q9967; J3010; J1170 ×5; J7030 ×3; J2405 ×6; G0378 ×3

== ENCOUNTER 2021-06-02 22:37 | Emergency (ER) | payer OTHER ==
--- OUTSIDE RECORDS SUMMARY | 2021-06-02 22:39 | XMS REPORT | Continuity of Care Document ---
:1980 Author Organization [facility] t Address [address] [place] [address] Care Team Providers Name Role Phone Praveen LIZARRAGA, Siraj Primary Care Physician Danis WALKER Attending Clinician Unavailable TAMMIE Attending Clinician Unavailable Stephen LIZARRAGA, Irving Attending Clinician Doctor Unassigned, Name Attending Clinician Unavailable FUAD_Vince Attending Clinician Unavailable Tammie LIZARRAGA Attending Clinician TAMMIE Admitting Clinician Unavailable SHAZIA Admitting Clinician Unavailable Tammie LIZARRAGA Admitting Clinician Payers Payer Name Policy Type Policy Number Effective Date Expiration Date S deshaun MEDICARE PART A [id number] 2009 2024 AND B 00:00:00 00:00:00 MEDICARE PART A [id number] 2009 \\T\\ B 00:00:00 [facility] [id number] 2020 MEDICAID 00:00:00 Problems Condition Condition Condition Status Onset Resolution Last Treating Co mments Source Name Details Category Date Date Treatment Clinician Date Partial Partial Disease Active Univers small small 2-09 ity of bowel bowel 00:00: [place] obstructio obstructio 00 Me dical n n Branch 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 2-14 st tis tis 00:00: Hospita 00 l Osteomyeli Osteomyeli Disease Active U nivers tis due to tis due to 06-29 it y of Staphyloco [place]aphyl[place] ccus ccus 00 Medical aureus aureus Branch Pain and Pain and Disease Active Unive rs swelling swelling 1- ity of of right of right 00:00: [place] elbow elbow 00 Medical Branch 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 06-27 it y of tis of tis of 00:00: [place] elbow, elbow, 00 Medical left left Branch Paraplegia Paraplegia Disease Active U nivers 06-27 ity of 00:00: [place] 00 Medical Branch Anemia of Anemia of Disease Active Uni vers chronic chronic 06-27 ity of disease disease 00:00: [place] 00 Medical Branch Neurogenic Neurogenic Disease Active U nivers bladder bladder 06-27 ity of 00:00: [place] 00 Medical Branch Septic Septic Disease Active 2014-06 Univers joint of joint of 2-31 ity of right right 00:00: [place] elbow elbow 00 Medical Branch Allergies, Adverse Reactions, Alerts Allergy Allergy Status Severity Reaction(s) Onset Inactive Treating Comm ents Source Name Type Date Date Clinician Ceftriax Propensi Active Other (See vomiting Methodi one ty to Comments) 08-10 st adverse 00:00: Hospita reaction 00 l s to drug NO KNOWN Drug Active Univers ALLERGIE Class ity of S [facility] Family History Family Member Diagnosis Comments Start Date Stop Date Source Natural father Diabetes [facility] Natural father Stroke [facility] Natural mother Hypertension [facility] Social History Social Habit Start Date Stop Date Quantity Comments Source Exposure to Not sure University of SARS-CoV-2 [facility] (event) Branch Tobacco use and 2020-08-05 2020-08-05 Never used Universit y of exposure 00:00:00 00:00:00 [facility] Branch History SDOH 2020-08-05 2020-08-05 4 University o f Financial 00:00:00 00:00:00 [facility] Branch History SDOH Food 2020-08-05 2020-08-05 1 Univers ity of Worry 00:00:00 00:00:00 [facility] History SDOH Food 2020-08-05 2020-08-05 1 Univers ity of Scarcity 00:00:00 00:00:00 [facility] Branch History SDOH 2020-08-05 2020-08-05 2 University o f Transport Med 00:00:00 00:00:00 [place] Medic al Branch History SDOH 2020-08-05 2020-08-05 2 University o f Transport Non-Med 00:00:00 00:00:00 [place] M edical Branch Alcohol intake 2017-08-10 2017-08-10 Current [facility] 00:00:00 00:00:00 non-drinker of alcohol (finding) Sex Assigned At [birth year] [facility] 00:00:00 00:00:00 Smoking Status Start Date Stop Date Source Tobacco smoking consumption [facility] unknown Never smoker [facility] [place] Medical Branch Medications Ordered Filled Start Stop Current Ordering Indication Dosage Frequency Signature Comments Components Source Medication Medication Date Date Medication? Clinician (SIG) Name Name FENTanyl Yes 1{patch Apply 1 Uni vers (DURAGESIC) 2-10 } Patch to ity of 75 mcg/hr 22:27: [place] patch 42 72 Medical (seventy-t Branch wo) hours. oxyCODONE-a Yes 1{tbl} Take 1 Tab Univers cetaminophe 2-10 by mouth ity of n 22:27: every 8 [place] (PERCOCET) 42 (eight) Medica l 10-325 mg hours as Branch per tablet needed for Pain. solifenacin Yes 10mg Take 10 mg Univers (VESICARE) 2-10 by mouth ity o f 10 mg 22:27: daily. [place] tablet 42 Medical Branch diazepam Yes 5mg Take 5 mg Univ ers (VALIUM) 5 2-10 by mouth 3 ity of mg tablet 22:27: (three) [place] 42 times Medical daily. Branch FENTanyl Yes 1{patch Apply 1 Uni vers (DURAGESIC) 2-10 } Patch to ity of 75 mcg/hr 22:27: skin every [place] patch 42 72 Medical (seventy-t Branch wo) hours. oxyCODONE-a Yes 1{tbl} Take 1 Tab Univers cetaminophe 2-10 by mouth ity of n 22:27: every 8 [place] (PERCOCET) 42 (eight) Medica l 10-325 mg hours as Branch per tablet needed for Pain. solifenacin Yes 10mg Take 10 mg Univers (VESICARE) 2-10 by mouth ity o f 10 mg 22:27: daily. [place] tablet 42 Medical Branch diazepam Yes 5mg Take 5 mg Univ ers (VALIUM) 5 2-10 by mouth 3 ity of mg tablet 22:27: (three) [place] 42 times Medical daily. Branch FENTanyl Yes 1{patch Apply 1 Uni vers (DURAGESIC) 2-10 } Patch to ity of 75 mcg/hr 22:27: skin every [place] patch 42 72 Medical (seventy-t Branch wo) hours. oxyCODONE-a Yes 1{tbl} Take 1 Tab Univers cetaminophe 2-10 by mouth ity of n 22:27: every 8 [place] (PERCOCET) 42 (eight) Medica l 10-325 mg hours as Branch per tablet needed for Pain. solifenacin Yes 10mg Take 10 mg Univers (VESICARE) 2-10 by mouth ity o f 10 mg 22:27: daily. [place] tablet 42 Medical Branch diazepam Yes 5mg Take 5 mg Univ ers (VALIUM) 5 2-10 by mouth 3 ity of mg tablet 22:27: (three) [place] 42 times Medical daily. Branch sodium 2020- No 15mmol 15 mmol, Univ ers phosphate 2-10 02-10 IV ity of 15 mmol in 17:00: 21:43 [place] NaCl 0.9% 00 :00 ONCE, 1 Medical (NS) 250 mL dose, Tue [facility] piggyback 08/06/20 at 1100, 250 mL Vancomycin Yes 750mg 750 mg, IV Univers 750 mg in 2-10 Pig[place], ity of NaCl 0.9% 07:30: Q8H ABX, [place] (NS) 250 mL 00 First dose Me dical VIAL-MATE (after Branch last modificati on) on Tue08/06/20 at 0130, Until Discontinu ed, 250 mL
Reas on for Anti-Infec tive: Documented Infection< br>Documen clyde Infection Site: Bone
Du ration of Therapy: Other (see Comments) diphenhydrA 2020- No 12mg 12.5 mg Un ky MINE 08-06 (rounded ity of (BENADRYL) 06:00: 05:37 from 12 Frankie as tablet 12.5 00 :00 mg), Oral, Me dical mg ONCE, 1 Branch dose, Tue08/06/20 at 0000, Routine morpHINE Yes 4mg 4 mg, Slow Uni vers injection 4 2-10 IV Push, ity of mg 03:30: Q4HPRN, [place] 00 Starting Medical Tue08/05/20 Branch at 2130, Until Discontinu ed, Routine, Pain (scale 7-10) lactobacill Yes 1{tbl} 1 tablet, Univers 2-10 Oral, BID, ity of acidophilus 02:00: First dose [place] (ACIDOPHILL 00 on [facility] l US) 08/05/20 at Branch million 2000, cell -100 Until mg captab 1 Discontinu tablet ed, Routine enoxaparin Yes 40mg 40 mg, Unive rs (LOVENOX) 08-05 Subcutaneo ity of injection 23:00: [place], DAILY, [place] 40 mg 00 First dose Medical on [place] 08/05/20 at 1700, Until Discontinu ed, Routine acetaminoph No 1000mg 1,000 mg, Univers en ADULT 08-05 IV ity of (OFIRMEV) 20:00: 12:24 Infusion, [place] injection 00 :00 Administer Medi obdulio 1,000 mg over 15 Branch Minutes, Q8H, 3 doses, First dose (after last modificati on) on Tue08/05/20 at 1400, Last dose on Tue08/06/20 at 0600, Routine
Indicatio n: Non-periop erative Patient
Approved by: Per Policy (NPO Status) morpHINE 2020- No 4mg 4 mg, Slow Un ky injection 4 08-0510 IV Push, ity of mg 20:00: 03:15 Q8H, First [place] 00 :54 dose on Medical Tue08/05/20 Branch at 1400, Until Discontinu ed, Routine NaCl 0.9% 2020- No 1000mL at 150 Uni vers (NS) bolus 2-09 02-09 mL/hr, ity of infusion 19:45: 18:50 1,000 mL, Frankie as 1,000 mL 00 :00 IV [facility] [place] ONCE, 1 dose, [facility] 08/05/20 at 1345, STAT NaCl 0.9% Yes 150mL/h IV Unive rs (NS) 1000 2- Infusion, ity o f mL + KCL 20 19:30: at 150 [place] mEq 00 mL/hr, [facility] CONTINUOUS Branch , Starting e 08/05/20 at 1330, Until Discontinu ed, Routine vancomycin No 1000mg 1,000 mg, Univers (VANCOCIN) 08-05 IV ity of 1,000 mg in 19:15: 00:25 [place], [place] NaCl 0.9% 00 :46 Q12H ABX, Medic al (NS) 250 mL First dose Br anch VIAL-MATE on IV 08/05/20 at piggyback 1315, Until Discontinu ed, 250 mL
R fatimah for Anti-Infec tive: Documented Infection< br>Documen clyde Infection Site: Bone
Du ration of Therapy: Other (see Comments) ondansetron Yes 4mg 4 mg, Slow Univers (ZOFRAN 08-05 IV Push, ity of (PF)) 18:30: Q6HPRN, [place] injection 4 25 Starting Medi obdulio mg [facility] 08/05/20 Branch at 1230, Until Discontinu ed, Routine, Nausea and Vomiting (N/V) carisoprodo Yes 350mg Q8H Take 350 M ethodi l (SOMA) 2-[address] 350 MG 01:24: mouth Hospita tablet 15 every 8 l (eight) hours as needed for muscle spasms. HYDROcodone Yes 1{tbl} Q4H Take 1 Me thodi -acetaminop 2-[address] (NORCO) 01:24: mouth Hospi ta 10-325 mg 15 every 4 l per tablet (four) hours as needed for moderate pain. oxybutynin Yes 15mg QD Take 15 mg M ethodi XL 2-[address] (DITROPAN-X 01:24: nightly. Ho spita L) 5 MG 24 15 l hr tablet sulfamethox 2016-0 Yes 1{tbl} Take 1 Tab Univers azole-trime 1-12 by mouth 2 it y of thoprim 00:00: (two) [place] (BACTRIM 00 times Medical DS) 800-160 daily. Branch mg per tablet rifampin 2016-0 Yes 300mg Take 1 Cap Un ky (RIFADIN) 1-12 by mouth ity of 300 mg 00:00: daily. [place] capsule [facility] sulfamethox 2016-0 Yes 1{tbl} Take 1 Tab Univers azole-trime 1-12 by mouth 2 it y of thoprim 00:00: (two) [place] (BACTRIM 00 times Medical DS) 800-160 daily. Branch mg per tablet rifampin 2016-0 Yes 300mg Take 1 Cap Un ky (RIFADIN) 1-12 by mouth ity of 300 mg 00:00: daily. [place] capsule [facility] sulfamethox 2015-0 Yes 1{tbl} Take 1 Tab Univers azole-trime 1-12 by mouth 2 it y of thoprim 00:00: (two) [place] (BACTRIM 00 times Medical DS) 800-160 daily. Branch mg per tablet rifampin 2015-0 Yes 300mg Take 1 Cap Un ky (RIFADIN) 1-12 by mouth ity of 300 mg 00:00: daily. [address] Vital Signs Vital Name Observation Time Observation Value Comments Source Systolic blood 2020-08-06 17:15:00 116 mm[Hg] Univer sity of pressure [facility] Diastolic blood 2020-08-06 17:15:00 81 mm[Hg] Unive rsity of pressure [facility] Heart rate 2020-08-06 17:15:00 85 /min [facility] Body temperature 2020-08-06 17:15:00 36.61 Breann [facility] Respiratory rate 2020-08-06 17:15:00 16 /min [facility] Oxygen saturation in 2020-08-06 17:15:00 96 /min [facility] Arterial blood by [facility] Pulse oximetry Branch Body weight 2020-08-06 09:55:00 60.328 kg [facility] BMI 2020-08-06 09:55:00 16.62 kg/m2 Universi ty [facility] Body height 2020-08-05 18:12:00 190.5 cm Universi [facility] Systolic blood 2020-08-06 17:15:00 116 mm[Hg] Univer sity of pressure [facility] Diastolic blood 2020-08-06 17:15:00 81 mm[Hg] Unive rsity of pressure [facility] Heart rate 2020-08-06 17:15:00 85 /min [facility] Body temperature 2020-08-06 17:15:00 36.61 Breann [facility] Respiratory rate 2020-08-06 17:15:00 16 /min [facility] Oxygen saturation in 2020-08-06 17:15:00 96 /min [facility] Arterial blood by [facility] Pulse oximetry Branch Body weight 2020-08-06 09:55:00 60.328 kg [facility] BMI 2020-08-06 09:55:00 16.62 kg/m2 [facility] Body height 2020-08-05 18:12:00 190.5 cm [facility] Procedures Procedure Date / Time Performing Clinician Source Performed EXTERNAL PROVIDER 2020-10-29 05:01:00 Doctor Unassigned, No [facility] Name Medical Branch EXTERNAL PROVIDER 2020-09-01 06:01:00 Doctor Unassigned, No [facility] RECORDS Name Medical Branch PHOSPHORUS 2020-08-06 10:11:00 jena [facility] MAGNESIUM 2020-08-06 10:11:00 [facility] BASIC METABOLIC PANEL 2020-08-06 10:11:00 Pam Shannon [facility] (NA, K, CL, CO2, Medical Branch GLUCOSE, BUN, CREATININE, CA) CBC WITH DIFF 2020-08-06 10:11:00 Tammie Pam [facility] URINALYSIS 2020-08-06 02:40:00 Tammie Pam [facility] HB ECG ROUTINE & RHYTHM 2020-08-05 23:43:39 Pam Shannon [facility] LACTIC ACID WHOLE BLOOD 2020-08-05 23:40:00 Pam Shannon [facility] ABORH CONFIRMATION 2020-08-05 22:45:00 [facility]BO GROUPING 2020-08-05 21:21:00 Pam Shannon [facility] PHOSPHORUS 2020-08-05 21:17:00 [facility] MAGNESIUM 2020-08-05 21:17:[facility]OLIC PANEL 2020-08-05 21:17[id number] CBC WITH DIFF 2020-08-05 21:17:00 Pam Shannon [facility] VANCOMYCIN TROUGH 2020-08-05 21:16:00 Pam Shannon [facility] [place] [facility] PROTHROMBIN TIME / INR 2020-08-05 21:16:00 Pam Shannon [facility] BLOOD CULTURE SCREEN 2020-08-05 21:15:00 Pam Shannon [facility] LACTIC ACID WHOLE BLOOD 2020-08-05 21:11:00 Pam Shannon [facility] XR CHEST 1 VW 2020-08-05 20:15:50 Pam Shannon [facility] CT ABDOMEN PELVIS W 2020-08-05 19:05:19 Nedra Boyce [facility] Plan of Care Planned Activity Planned Date Details Comments Source Future Scheduled Test COVID-19 VACCINE (1) [facility] [code = COVID-19 VACCINE (1)] Future Scheduled Test INFLUENZA VACCINE [facility] [code = INFLUENZA VACCINE] Encounters Start End Encounter Admission Attending Care Care Encounter Source Date/Time Date/Time Type Type Clinicians Facility Department ID 2021-03-07 Outpatient [facility] [id number] [place] 01:06:09 [facility] 2020-08-05 Inpatient U TAMMIE [facility] [id number] [facility]:35[facility] 2021-04-10 2021-04-10 EXT MHH OP EXT MSRDP 1.2.840.114 [id number] [place] 00:00:00 00:00:00 LOCATION [id number] H ealth [id number] [id number] 2021-04-10 2021-04-10 EXT MHH OP EXT MSRDP [id number] [place] 00:00:00 00:00:00 LOCATION [id number] H ealth [id number] [id number] 2021-04-10 2021-04-10 EXT MHH OP [place], EXT MSRDP [id number] [place] 00:00:00 00:00:00 Patrick Moscoso LOCATION [id number] H ealth [id number] [id number] 2021-04-08 2021-04-[address] [facility] [id number] [facility] 15:15:00 15:15:00 2020-12-28 2020-12-28 EXT MHH OP [place], EXT MSRDP [id number] [place] 00:00:00 00:00:00 Irene Villatoro LOCATION [id number] Health 9.2.7.2.686 [id number] 2020-10-29 2020-10-29 Orders Doctor RIYA 1.2.840.114 [id number] 00:00:00 00:00:00 Only Unassigned, ERIKA [address] [facility] 4.2.7.2.686 [id number] [id number] 2020-10-29 2020-10-29 Orders Doctor RIYA 1.2.840.114 [id number] Univers 00:00:00 00:00:00 Only Unassigned, ERIKA 350.1.13.[address] [facility] 4.2.7.2.686 Frankie as [id number] [facility] 009 Branch 2020-10-14 2020-10-14 Inpatient [facility] MED [id number] [facility] 17:03:00 06:00:00 2020-10-13 2020-10-13 EXT MHH OP [place], EXT MSRDP 1.2.840.114 [id number] [place] 00:00:00 00:00:00 Patrick HAGEN 350.1.13.58 H ealt 9.2.7.2.686 [id number] 2020-09-29 2020-09-29 Outpatient HUTTON_L [facility]G MMG [id number] [place] 09:44:00 09:44:00 [facility] 2020-09-01 2020-09-01 Orders Doctor RIYA 1.2.840.114 [id number] 00:00:00 00:00:00 Only Unassigned, ERIKA [address]13[address] [facility] 4.2.7.2.686 [id number] 009 2020-09-01 2020-09-01 Orders Doctor RIYA 1.2.840.114 [id number] [facility] 00:00:00 00:00:00 Only Unassigned, ERIKA 350.1.13.[address] [facility] 4.2.7.2.686 Frankie as [id number] [facility] 009 Branch 2020-08-05 2020-08-06 [facility] 1.2.840.114 [id number] 11:35:00 13:28:00 Encounter Pamestefanía Sawant 350.1.13.10 [place] 4.2.7.2.686 [place] [id number] [facility] 2020-08-05 2020-08-06 [facility] 1.2.840.114 [id number] [facility] 11:35:00 13:28:00 Encounter Pam [place] 350.1.13.10 ity of [place] 4.2.7.2.686 [facility] [id number] [place] [id number] Branch Results Test Description Test Time Test Comments Results Result Comments Source AM CBC with Differential 2020-08-06 14:44:00 Test Item Value Reference Range Interpretation Comme nts WBC (test code = 6690-2) See_Comment [A utomated message] The system which ge nerated this result transmit clyde reference range: 4.20 - 1 0.70 10*3/?L. The reference r tarah was not used to interpr et this result as darwin l/abnormal. RBC (test code = 789-8) See_Comment L [Au tomated message] The system which [employer] nerated this result transmit clyde reference range: 4.26 - 5 .52 10*6/?L. The reference r tarah was not used to interpr et this result as darwin l/abnormal. HGB (test code = 718-7) 9.2 g/dL 12.2-16.4 L HCT (test code = 4544-3) 30.5 % 38.4-49.3 L MCV (test code = 787-2) 94.4 fL 81.7-95.6 MCH (test code = 785-6) 28.5 pg 26.1-32.7 MCHC (test code = 786-4) 30.2 g/dL 31.2-35 L RDW-SD (test code = 55.4 fL 38.5-51.6 H 09818-7) RDW-CV (test code = 788-0) 16.0 % 12.1-15.4 H PLT (test code = 777-3) See_Comment [Au tomated message] The system which [employer] nerated this result transmit clyde reference range: 150 - 32 8 10*3/?L. The reference r tarah was not used to interpr et this result as darwin l/abnormal. MPV (test code = 84695-0) 9.9 fL 9.8-13 NRBC/100 WBC (test code = See_Comment [ Automated message] The [id number]) system which [employer] nerated this result transmit clyde reference range: 0.0 - 10 .0 /100 WBCs. The reference r tarah was not used to interpr et this result as darwin l/abnormal. NRBC x10^3 (test code = <0.01 See_Comment [Au tomated message] The [id number]) system which [employer] nerated this result transmit clyde reference range: 10*3/?L. The reference range was not used to interpret th is result as normal/abnormal . GRAN MAT (NEUT) % (test 74.3 % code = 770-8) IMM GRAN % (test code = 0.30 % 0722929159) LYMPH % (test code = 11.8 % 736-9) MONO % (test code = 10.5 % 5905-5) EOS % (test code = 713-8) 2.5 % BASO % (test code = 706-2) 0.6 % GRAN MAT x10^3(ANC) (test 5.15 10*3/uL 1.99-6.95 code = 2778632442) IMM GRAN x10^3 (test code <0.03 0-0.06 = 6817908843) LYMPH x10^3 (test code = 0.82 10*3/uL 1.09-3.23 L 731-0) MONO x10^3 (test code = 0.73 10*3/uL 0.36-1.02 742-7) EOS x10^3 (test code = 0.17 10*3/uL 0.06-0.53 711-2) BASO x10^3 (test code = 0.04 10*3/uL 0.01-0.09 704-7) BANDS (test code = MARKED INCREASED A 6550474419) Lab Interpretation (test Abnormal code = 43485-5) [facility] [place] [facility] [id number] 14:43:06Impression: Findings consistent with small bowel obstruction with a transition point inthe distal small bowel, in the right side of the pelvis, close to a site ofprior anastomosis. The terminal ileum and the colon are unremarkable. Exam: CT ABDOMEN PELVIS W CONTRAST Clinical History: 40-year-old maleComparison: None Findings: [facility] were submitted forinterpretation. The visualized lung bases show a calcified granuloma in the right lungbase. There is no evidence of pleural or pericardial effusion. The liver shows no focal lesions or ductal dilatation. The gall bladder,kidneys, spleen, adrenals, and the pancreas are unremarkable. Minimal freefluid is seen in the pelvis with no evidence of free air orlymphadenopathy. Urinary bladder and prostate are unremarkable. There is dilated dictation and distention of small bowel loops seen in theabdomen and pelvis. A transition point is suspected in the distal smallbowel, right side of the pelvis close to the anastomotic sutures (2:79 mpp073:[id number]). The terminal ileum is unremarkable. Colon shows a small amount ofstools. A colostomy seen in the left lower quadrant. A stimulator is seen in the right lower quadrant. The vasculature isunremarkable and the bones show degenerative changes with no suspiciousfocal lesions. [facility], Radiant Results Inft User - 08/06/2020 8:44 AM CSTExam: CT ABDOMEN PELVIS W CONTRASTClinical History: 40-year-old maleComparison: NoneFindings: Images acquired at [facility] were submitted forinterpretation.The visualized lung bases show a calcified granuloma in the right lungbase. There is no evidence of pleural or pericardial effusion.The liver shows no focal lesions or ductal dilatation. The gallbladder,kidneys, spleen, adrenals, and the pancreas are unremarkable. Minimal freefluid is seen in the pelvis with no evidence of free air orlymphadenopathy. Urinary bladder and prostate are unremarkable.There is dilated dictation and distention of small bowel loops seen in theabdomen and pelvis. A transition point is suspected in the distal smallbowel, right side of the pelvis close to the anastomotic sutures (2:79 rsy591:44). The terminal ileum is unremarkable. Colon shows a small amount ofstools. A colostomy seen in the left lower quadrant.A stimulator is seen in the right lower quadrant. The vasculature isunremarkable and the bones show degenerative changes with no suspiciousfocal lesions.IMPRESSIONImpression: Findings consistent with small bowel obstruction with a transition point inthe distal small bowel, in the right side of the pelvis, close to a site ofprior anastomosis. The terminal ileum and the colon are unremarkable.[facility] 11:33:00 Test Item Value Reference Range Interpretation Comments MAGNESIUM (test code = 7777889225) 1.7 mg/dL 1.7-2.4 Lab Interpretation (test code = Normal 62186-5) [facility] Basic Metabolic Panel (NA, K, CL, CO2, GLUCOSE, BUN, CREATININE, CA)2020-08-06 11:32:00 Test Item Value Reference Range Interpretation Comments NA (test code = 139 mmol/L 135-145 7967640997) K (test code = 4.1 mmol/L 3.5-5 5614266654) CL (test code = 103 mmol/L 98-108 7552110004) CO2 TOTAL (test code = 32 mmol/L 23-31 H 0530880355) AGAP (test code = 2-16 8274613521) BUN (test code = 20 mg/dL 7-23 9932616114) GLUCOSE (test code = 91 mg/dL 70-110 9947245665) CREATININE (test code = 0.55 mg/dL 0.6-1.25 L 5607587646) CALCIUM (test code = 7.9 mg/dL 8.6-10.6 L 3836798613) eGFR Calculation mL/min/1.73m2 (Non-) (test code = 9798489442) eGFR Calculation mL/min/1.73m2 () (test code = 7553063809) KRYSTIAN (test code = KRYSTIAN) Association of Glomerular Filtration Rate (GFR) and Staging of Kidney Disease* + --+ --+ ------+| GFR (mL/min/1.73 m2) ?| With Kidney Damage ?| ?Without Kidney Damage+ --------+ --------+ +| ?>90 ?| ?Stage one ?| ? Normal ?+ ---+ ---+ -------+| ?60-89 ?| ?Stage two ?| ? Decreased GFR ? + --+ --+ ------+| ?30-59 ?| ?Stage three ?| ? Stage three ? + --+ --+ ------+| ?15-29 ?| ?Stage four ? | ? Stage four ?+ ---+ ---+ -------+| ?<15 (or dialysis) ? ?| ?Stage five ? | ? Stage five ?+ ---+ ---+ -------+ *Each stage assumes the associated GFR level has been in effect for at least three months. ?Stages 1 to 5, with or without kidney disease, indicate chronic kidney disease. Notes: Determination of stages one and two (with eGFR >59mL/min/1.73 m2) requires estimation of kidney damage for at least three months as defined by structural or functional abnormalities of the kidney, manifested by either:Pathological abnormalities or Markers of kidney damage (including abnormalities in the composition of the blood or urine or abnormalities in imaging tests). Lab Interpretation Abnormal (test code = 95879-9) [facility] 11:32:00 Test Item Value Reference Range Interpretation Comments PHOSPHORUS (test code = 2051773984) 2.4 mg/dL 2.5-5 L Lab Interpretation (test code = Abnormal 67766-1) [facility]2021-[facility]-10 03:22:00 Test Item Value Reference Range Interpretation Comments APPEARANCE (test code = Clear Clear 3422480337) COLOR (test code = Yellow Yellow 7729485925) PH (test code = 4.8-8.0 1869116227) SP GRAVITY (test code = 1.003-1.030 H 8951402262) GLU U QUAL (test code = Normal Normal 9422906107) BLOOD (test code = Negative Negative 8191512543) KETONES (test code = Negative Negative 5173914582) PROTEIN (test code = Negative Negative 2887-8) UROBILIN (test code = Normal Normal 0691838083) BILIRUBIN (test code = Negative Negative 8791081764) NITRITE (test code = Negative Negative 0053981476) LEUK EMILY (test code = Negative Negative 7745548321) RBC/HPF (test code = See_Comment H [Autom ated message] 4213454631) The system [employer] generated this result transmitted ref erence range: 0 - 3 HP F. The reference range was not used to int erpret this result as normal/abnormal . WBC/HPF (test code = See_Comment H [Autom ated message] 5682948821) The system [employer] generated this result transmitted ref erence range: 0 - 5 HP F. The reference range was not used to int erpret this result as normal/abnormal . BACTERIA (test code = Few Negative A 2091664454) SQ EPITH (test code = <1 HPF 8507098600) Lab Interpretation (test Abnormal code = 99448-3) [facility]ABORH [id number] 00:36:25 Test Item Value Reference Range Interpretation Comments ABO & RH (test code O Negative Performe d at [facility] = 20) Laboratory Serv [facility] [address] [place] [id number] Free: [phone] A No. [id number] [facility] HospitalLactic Acid Whole [id number] 23:48:00 Test Item Value Reference Range Interpretation Comments LACTIC ACID (test code = 2.08 mmol/L 0.5-2.2 9509589265) Lab Interpretation (test code = Normal 99023-8) [facility] HospitalVancomycin Trough Level - Draw within 30 minutes prior to 2ND dose.2020-08-05 23:25:00 Test Item Value Reference Range Interpretation Comments VANCO TROUGH (test code <5.0 10-20 L = 7290817655) KRYSTIAN (test code = KRYSTIAN) Toxic Range: ?>20 ug/mL 15-20 ug/mL is recommended for severe infection or when Vancomycin IVET is greater than or equal to 2. Lab Interpretation (test Abnormal code = 64484-4) [facility] WITH [id number] 22:40:00 Test Item Value Reference Range Interpretation Comments WBC (test code = See_Comment [Automated 0690-2) message] The sy stem which generated this result transmitted reference range : 4.20 - 10.70 10*3/?L. The reference range was not used to interpret this result as normal/abnormal . RBC (test code = See_Comment L [Automated 049-8) message] The sy stem which generated this result transmitted reference range : 4.26 - 5.52 10*6/?L. The reference range was not used to interpret this result as normal/abnormal . HGB (test code = 11.3 g/dL 12.2-16.4 L 718-7) HCT (test code = 35.5 % 38.4-49.3 L 4544-3) MCV (test code = 91.5 fL 81.7-95.6 787-2) MCH (test code = 29.1 pg 26.1-32.7 785-6) MCHC (test code = 31.8 g/dL 31.2-35 786-4) RDW-SD (test code = 54.0 fL 38.5-51.6 H 62141-8) RDW-CV (test code = 16.2 % 12.1-15.4 H 788-0) PLT (test code = See_Comment [Automated 777-3) message] The sy stem which generated this result transmitted reference range : 150 - 328 10*3/ ?L. The reference r tarah was not used to interpret this result as normal/abnormal . MPV (test code = 10.2 fL 9.8-13 93313-6) NRBC/100 WBC (test See_Comment [Automat ed code = 1856155134) message] The system which generated this result transmitted reference range : 0.0 - 10.0 /100 WBCs. The refer ence range was not u sed to interpret th is result as normal/abnormal . NRBC x10^3 (test code <0.01 See_Comment [Auto mated = 1105362264) message] The s ystem which generated this result transmitted reference range : 10*3/?L. The reference range was not used to interpret this result as normal/abnormal . SEG % (test code = 77 % 33-76 H 46837-1) BAND % (test code = 5 % 0-1 H 34778-5) LYMPH % (test code = 10 % 14-54 L 99305-7) MONO % (test code = 8 % 0-4 H 93852-5) ANC (test code = 3.76 10*3/uL 1.99-6.95 9485529971) TOXIC CHANGES (test Present A code = 803-7) Lab Interpretation Abnormal (test code = 33915-4) [facility] HospitalType and Screen - ONCE [id number] 22:33:59 Test Item Value Reference Range Interpretation Comments ABO & RH (test code O Negative Performe d at [facility] = 20) Laboratory Serv [facility] [place], [place] [address]Toll Free: [phone] A No. [id number] IAT (test code = Negative Performed a t [facility] 1185) Laboratory Serv [facility] [address] [place], [place] [id number] Free: [phone] A No. [id number] [facility] HospitalCOMP. METABOLIC PANEL (03994)2020-08-05 22:26:00 Test Item Value Reference Range Interpretation Comments NA (test code = 136 mmol/L 135-145 2346608831) K (test code = 4.3 mmol/L 3.5-5 0342392960) CL (test code = 98 mmol/L 98-108 2170473496) CO2 TOTAL (test code = 31 mmol/L 23-31 6682581145) AGAP (test code = 2-16 6275224528) BUN (test code = 27 mg/dL 7-23 H 3709974972) GLUCOSE (test code = 132 mg/dL 70-110 H 3447710862) CREATININE (test code = 0.63 mg/dL 0.6-1.25 2161531923) TOTAL BILI (test code = 0.5 mg/dL 0.1-1.3 1328383086) CALCIUM (test code = 8.8 mg/dL 8.6-10.6 5204662447) T PROTEIN (test code = 7.4 g/dL 6.3-8.2 4750483341) ALBUMIN (test code = 3.9 g/dL 3.5-5 9115520930) ALK PHOS (test code = 64 U/L 34-122 6284786755) ALTv (test code = 17 U/L 5-50 1742-6) AST(SGOT) (test code = 23 U/L 13-40 9604115544) eGFR Calculation mL/min/1.73m2 (Non-) (test code = 9652420435) eGFR Calculation mL/min/1.73m2 () (test code = 4671821685) KRYSTIAN (test code = KRYSTIAN) Association of Glomerular Filtration Rate (GFR) and Staging of Kidney Disease* + --+ --+ ------+| GFR (mL/min/1.73 m2) ?| With Kidney Damage ?| ?Without Kidney Damage+ --------+ --------+ +| ?>90 ?| ?Stage one ?| ? Normal ?+ ---+ ---+ -------+| ?60-89 ?| ?Stage two ?| ? Decreased GFR ? + --+ --+ ------+| ?30-59 ?| ?Stage three ?| ? Stage three ? + --+ --+ ------+| ?15-29 ?| ?Stage four ? | ? Stage four ?+ ---+ ---+ -------+| ?<15 (or dialysis) ? ?| ?Stage five ? | ? Stage five ?+ ---+ ---+ -------+ *Each stage assumes the associated GFR level has been in effect for at least three months. ?Stages 1 to 5, with or without kidney disease, indicate chronic kidney disease. Notes: Determination of stages one and two (with eGFR >59mL/min/1.73 m2) requires estimation of kidney damage for at least three months as defined by structural or functional abnormalities of the kidney, manifested by either:Pathological abnormalities or Markers of kidney damage (including abnormalities in the composition of the blood or urine or abnormalities in imaging tests). Lab Interpretation Abnormal (test code = 06712-6) [facility] HospitalMAGNESIUM2021-02-09 22:26:00 Test Item Value Reference Range Interpretation Comments MAGNESIUM (test code = 1556384574) 1.8 mg/dL 1.7-2.4 Lab Interpretation (test code = Normal 63638-9) [facility]PH[facility]2021-02-09 22:25:00 Test Item Value Reference Range Interpretation Comments PHOSPHORUS (test code = 7766680628) 3.5 mg/dL 2.5-5 Lab Interpretation (test code = Normal 41568-5) [facility] HospitalPROTHROMBIN TIME / [id number] 22:07:00 Test Item Value Reference Range Interpretation Comments PROTIME PATIENT (test See_Comment H [Auto mated message] code = 5964-2) The system [employer] generated this result transmitted ref erence range: 12.0 - 1 4.7 Seconds. The reference range was not used to int erpret this result as normal/abnormal . INR (test code = 6301-6) Nor mal INR <1.1; Warfarin Therap eutic range 2.0 to 3. 0 or 2.5 to 3.5, dep ending upon the indica tions. Lab Interpretation (test Abnormal code = 47470-8) [facility] HospitalLactic Acid Whole [id number] 21:20:00 Test Item Value Reference Range Interpretation Comments LACTIC ACID (test code = 2.65 mmol/L 0.5-2.2 H 3858405433) Lab Interpretation (test code = Abnormal 50990-3) [facility] HospitalXR CHEST 1 [id number] 20:19:28HISTORY: Infectious workup and NG tube verification. TECHNIQUE: 2 portable AP semierect views of thechest are submitted. Noprior study available for comparison. FINDINGS: No acute pneumonia. No pneumothorax or pleural effusion orpulmonary congestion detected. Cardiac size is within normal limits. Central line inserted through right internal jugular is in good positionwith its tip at distal SVC level. Calcified granulomas are seen in theright midlung and right lower lung. Nasogastric tube is in acceptable position with its tip in the fundus ofthe stomach and sidehole also in the fundus of the stomach below the EGjunction. Note made of lower cervical ACDF surgical changes. CONCLUSIONS:1. No signs of acute cardiopulmonary disease.2. Nasogastric tube is in acceptable position with its distal end in thefundus region of the stomach and sidehole below the EG junction.[facility], Radiant Results Inft User - 08/05/2020 2:20 PM CSTHISTORY: Infectious workup and NG tube verification.TECHNIQUE: 2 portable AP semierect views of the chest are submitted. Noprior study available for comparison.FINDINGS: No acute pneumonia. No pneumothorax or pleural effusion orpulmonary congestion detected. Cardiac size is within normal limits.Central line inserted through right internal jugular is in good positionwith its tip at distal SVC level. Calcified granulomas are seen in theright midlung and right lower lung.Nasogastric tube is in acceptable position with its tip in the fundus ofthe stomach and sidehole also in the fundus of the stomach below the EGjunction. Note made of lower cervical ACDF surgical changes.CONCLUSIONS:1. No signs of acute cardiopulmonary disease.2. Nasogastric tube is in acceptable position with its distal end in thefundus region of the stomach and sidehole below the EG junction.[facility]"
[2021-06-03] MEDS ORDERED: HYDROMORPHONE HCL 0.5 MG/0.5 ML INJ ONE (00:42)
[2021-06-03 01:19] LABS: Hematocrit 34.3 % (39.6-49.0); MPV 8.7 fL (7.6-11.3)
[2021-06-03 01:25] LABS: BUN Blood Urea Nitrogen 21 mg/dL (7-18); Bicarbonate 24 mmol/L (21-32); Glucose Level 109 mg/dL (74-106); Potassium 3.9 mmol/L (3.5-5.1); Sodium Level 142 mmol/L (136-145)
[2021-06-03] MEDS ORDERED: NA CHLORIDE 0.9% 1,000 ML ONE (02:28)
[2021-06-03] MEDS ORDERED: ETOMIDATE 20 MG/10 ML VIAL IV ONE (02:28)
[2021-06-03] MEDS ORDERED: ONDANSETRON 4 MG/2 ML VIAL ONE (02:28)
--- NOTE | 2021-06-03 02:59 | EDPHYS ---
Physician Documentation [facility] Name: Zachary Amado Age: 40 yrs Sex: Male : 1980 Arrival Date: 06/02/2021 Time: 22:38 Bed 4 Private MD: ED Physician Adithya Day HPI: 06/03 00:59 This 40 yrs old Male presents to ER via EMS with complaints of Leg Pain. jr8 00:59 Associated signs and symptoms: The patient has no apparent associated signs or jr8 symptoms. Severity of symptoms: At their worst the symptoms were moderate, in the emergency department the symptoms are unchanged. The patient has not experienced similar symptoms in the past. The patient has been recently seen by a physician:. This is a 40-year-old tetraplegic male that came in for continuation of left hip pain. Patient was recently admitted to [facility] for pain management secondary to a left hip fracture from an injury. Patient was sent home but tonight had acute worsening of spasm and pain to the left hip. Has yet to be able to see an orthopedic surgeon. Denies reinjury.. Historical: - Allergies: 06/02 22:40 No Known Allergies; bb - Home Meds: 22:40 hydrocodone-acetaminophen 10-325 mg Oral tab [Active]; Morphine Oral [Active]; Valium bb Oral [Active]; Oxybutynin Chloride Oral [Active]; Restoril Oral [Active]; Colace oral [Active]; - PMHx: 22:40 bowel obstruction; C7 tetraplegic; colostomy; paralysis; bb - PSHx: 22:40 Left hip; colostomy; bb - Immunization history:: Adult Immunizations up to date. - Social history:: Smoking status: Patient denies any tobacco usage or history of. Patient/guardian denies using alcohol, street drugs. ROS: 06/03 00:59 Constitutional: Negative for fever, chills, and weight loss, Cardiovascular: Negative jr8 for chest pain, palpitations, and edema, Respiratory: Negative for shortness of breath, cough, wheezing, and pleuritic chest pain, Abdomen/GI: Negative for abdominal pain, nausea, vomiting, diarrhea, and constipation, Back: Negative for injury and pain, Skin: Negative for injury, rash, and discoloration, Neuro: Negative for headache, weakness, numbness, tingling, and seizure. MS/extremity: Positive for pain, of the left leg. Exam: 00:59 Cardiovascular: Regular rate and rhythm with a normal S1 and S2. No gallops, murmurs, jr8 or rubs. Normal PMI, no JVD. No pulse deficits. Respiratory: Lungs have equal breath sounds bilaterally, clear to auscultation and percussion. No rales, rhonchi or wheezes noted. No increased work of breathing, no retractions or nasal flaring. Abdomen/GI: Soft, non-tender, with normal bowel sounds. No distension or tympany. No guarding or rebound. No evidence of tenderness throughout. Back: No spinal tenderness. No costovertebral tenderness. Full range of motion. Skin: Warm, dry with normal turgor. Normal color with no rashes, no lesions, and no evidence of cellulitis. Neuro: Awake and alert, GCS 15, oriented to person, place, time, and situation. Cranial nerves II-XII grossly intact. Motor strength 5/5 in upper extremities. Sensory grossly intact. 00:59 Constitutional: The patient appears alert, awake, frail. 00:59 Musculoskeletal/extremity: Extremities: grossly normal except: noted in the left leg: pain, tenderness, Left hip, Pulses: noted to be 2+ in the right radial artery, right dorsalis pedis artery, left radial artery and left dorsalis pedis artery. Vital Signs: 06/02 22:38 BP 138 / 91; Pulse 100; Resp 16 S; Temp 98.1; Pulse Ox 97% on R/A; Weight 63.5 kg (R); bb Height 6 ft. 2 in. (187.96 cm) (R); 23:42 BP 126 / 86; Pulse 95; Pulse Ox 100% on R/A; ld1 23:45 BP 126 / 86; Pulse 106; Resp 16 S; Pulse Ox 98% on R/A; bb 06/03 03:37 BP 132 / 71; Pulse 93; Resp 16 S; Pulse Ox 97% on R/A; Pain 6/10; bb 06/02 22:38 Body Mass Index 17.97 (63.50 kg, 187.96 cm) bb Procedures: 02:57 Moderate sedation: Pre-procedure assessment: the patient has been NPO 4 hour(s) prior jr8 to arrival, ASA physical classification: III - organic disease with definite functional impairment, Airway assessment: able to hyperextend neck, able to maintain airway, can open mouth without difficulty, Mallampati classification of tongue size: II - faucial pillars and soft palate can be visualized, but uvula is masked by the base of the tongue, Monitoring during procedure: monitor worker, continuous pulse oximetry, nurse at bedside at all times, Medications employed: Etomidate, 10 mg(s), Post-procedure assessment: the patient is deeply sedated, Jaramillo sedation score: 6 - no response, Respiratory status: requires supplemental oxygen to maintain acceptable oxygen saturation, a reversal agent was not used. MDM: 06/02 23:44 Patient medically screened. jr8 06/03 02:56 Data reviewed: vital signs, nurses notes, lab test result(s), radiologic studies, plain jr8 films. Data interpreted: Pulse oximetry: on room air is 98 %. Interpretation: normal. Counseling: I had a detailed discussion with the patient and/or guardian regarding: the historical points, exam findings, and any diagnostic results supporting the discharge/admit diagnosis, lab results, radiology results, the need for outpatient follow up, a orthopedic surgeon, to return to the emergency department if symptoms worsen or persist or if there are any questions or concerns that arise at home. ED course: Dr. Keenan and I tried to reduce the hip but keeps falling out of socket. We had a detailed discussion with patient about his options. 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 Patient wants to try going home at this time and if he gets worse will go to tertiary facility.. 06/02 23:58 Order name: CBC with Diff; Complete Time: 01:28 jr8 06/02 23:58 Order name: Basic Metabolic Panel; Complete Time: :28 jr8 06/02 23:57 Order name: XRAY Hip LEFT 2 view jr8 06/02 23:58 Order name: IV; Complete Time: 00:40 jr8 Administered Medications: 00:50 Drug: Dilaudid (HYDROmorphone) 0.5 mg Route: IVP; Site: right hand; bb 02:50 Follow up: Response: No adverse reaction; Pain is decreased; RASS: Alert and Calm (0) bb 02:32 Drug: NS 0.9% 1000 ml Route: IV; Rate: 1000 ml; Site: right hand; bb 02:32 Drug: Zofran (Ondansetron) 4 mg Route: IVP; Site: right hand; bb 03:08 Follow up: Response: No adverse reaction bb 02:35 Drug: Etomidate 10 mg Route: IVP; Site: right hand; bb 02:51 Follow up: Response: No adverse reaction bb 03:06 Not Given (Other Intervention Used): fentaNYL (PF) 50 mcg IVP once; RASS on ADMIN: bb Combtv4, Very Agttd3, Agttd2, Rstlss1, AlertClm0, Drwsy-1, Lt Sdtn-2, Mod Sdtn-3, Dp Sdtn-4, UnArsble-5 03:07 Drug: fentaNYL (PF) 50 mcg Route: IM; Site: right deltoid; bb 03:36 Follow up: Response: No adverse reaction; Pain is decreased; RASS: Alert and Calm (0) bb Disposition: 05:53 Co-signature as Attending Physician, Adithya Day MD. 7 Disposition Summary: 06/03/21 02:58 Discharge Ordered Location: Home jr8 Problem: new jr8 Symptoms: have improved jr8 Condition: Stable jr8 Diagnosis - Dislocation of left hip jr8 - Acetabular fracture left hip jr8 Followup: jr8 - With: Private Physician - When: As needed - Reason: Recheck today's complaints, Continuance of care, Re-evaluation by your physician Discharge Instructions: - Discharge Summary Sheet jr8 - Hip Dislocation jr8 - Simple Pelvic Fracture, Adult jr8 Forms: - Medication Reconciliation Form jr8 - Thank You Letter jr8 - Antibiotic Education jr8 - Prescription Opioid Use jr8 Signatures: Dispatcher [employer] Jessica Liu RN RN Artie Garcia PA PA jr8 Holmes, Maurice, MD MD 7
--- NOTE | 2021-06-03 02:59 | ER ---
Nurse's Notes [facility] Name: Zachary Amado Age: 40 yrs Sex: Male : 1980 Arrival Date: 06/02/2021 Time: 22:38 Bed 4 Private MD: Diagnosis: Dislocation of left hip;Acetabular fracture left hip Presentation: 06/02 22:38 Chief complaint: EMS states: they were toned out for report of pt with worsening bb symptoms s/p left hip fracture last Tuesday. The pain is worse, spasms are worse and he is nauseous. Coronavirus screen: At this time, the client does not indicate any symptoms associated with coronavirus-19. Ebola Screen: No symptoms or risks identified at this time. Initial Sepsis Screen: Does the patient meet any 2 criteria? No. Patient's initial sepsis screen is negative. Does the patient have a suspected source of infection? No. Patient's initial sepsis screen is negative. Risk Assessment: Do you want to hurt yourself or someone else? Patient reports no desire to harm self or others. Onset of symptoms was May 29, 2021. Care prior to arrival: Medication(s) given: Tylenol, 1000 mg. 22:38 Method Of Arrival: EMS: [facility] bb 22:38 Acuity: MICHEL 3 bb Triage Assessment: 22:40 General: Appears in no apparent distress. uncomfortable, Behavior is calm, cooperative. bb Pain: Complains of pain in left hip. Neuro: Level of Consciousness is awake, alert, obeys commands, Oriented to person, place, time, situation. Cardiovascular: Capillary refill < 3 seconds Patient's skin is warm and dry. Respiratory: Airway is patent Respiratory effort is even, unlabored, Respiratory pattern is regular. GI: Colostomy site is clean and dry. Ostomy appliance is intact. Derm: Skin is pink, warm \T\ dry. Musculoskeletal: bilateral legs with muscle atrophy pt reports pain in left hip. Historical: - Allergies: 22:40 No Known Allergies; bb - Home Meds: 22:40 hydrocodone-acetaminophen 10-325 mg Oral tab [Active]; Morphine Oral [Active]; Valium bb Oral [Active]; Oxybutynin Chloride Oral [Active]; Restoril Oral [Active]; Colace oral [Active]; - PMHx: 22:40 bowel obstruction; C7 tetraplegic; colostomy; paralysis; bb - PSHx: 22:40 Left hip; colostomy; bb - Immunization history:: Adult Immunizations up to date. - Social history:: Smoking status: Patient denies any tobacco usage or history of. Patient/guardian denies using alcohol, street drugs. Screenin/08 03:38 Abuse screen: Denies threats or abuse. Nutritional screening: No deficits noted. bb Tuberculosis screening: No symptoms or risk factors identified. Fall Risk None identified. Assessment: 06/02 23:42 Reassessment: See triage assessment. ld1 06/03 01:40 Reassessment: Patient is alert, oriented x 3, equal unlabored respirations, skin bb warm/dry/pink. awaiting diagnostic results. 02:30 Reassessment: Dr Keenan at bedside for discussion of findings and recommendations pt bb to have conscious sedation in an effort to reset left hip. Pt verbalized understanding of and agrees to plan of care pt signed consent form for conscious sedation and procedure. 03:37 Reassessment: Patient is alert, oriented x 3, equal unlabored respirations, skin bb warm/dry/pink. pt verbalized understanding of and agrees to plan of care discharge instructions given pt awaiting arrival of family for discharge. Vital Signs: 06/02 22:38 BP 138 / 91; Pulse 100; Resp 16 S; Temp 98.1; Pulse Ox 97% on R/A; Weight 63.5 kg (R); bb Height 6 ft. 2 in. (187.96 cm) (R); 23:42 BP 126 / 86; Pulse 95; Pulse Ox 100% on R/A; ld1 23:45 BP 126 / 86; Pulse 106; Resp 16 S; Pulse Ox 98% on R/A; bb 06/03 03:37 BP 132 / 71; Pulse 93; Resp 16 S; Pulse Ox 97% on R/A; Pain 6/10; bb 06/02 22:38 Body Mass Index 17.97 (63.50 kg, 187.96 cm) bb ED Course: 06/02 22:38 Patient arrived in ED. bb 22:40 Triage completed. bb 22:40 Arm band placed on Patient placed in an exam room, on a stretcher, on pulse oximetry. bb 23:43 Roszak, Artie, PA is PHCP. jr8 23:43 Adithya Day MD is Attending Physician. jr8 06/03 00:19 XRAY Hip LEFT 2 view In Process Unspecified. EDMS 00:26 Inserted saline lock: 20 gauge in right hand, using aseptic technique. bb 02:08 Consent for conscious sedation explained by staff, Procedure consent explained by bb physician, signed by patient. 02:08 IV discontinued, intact, bleeding controlled, No redness/swelling at site. Pressure bb dressing applied. 02:10 conscious sedation for reduction of left hip see flow sheet. bb 03:09 Jessica Gurrola, RN is Primary Nurse. bb 03:38 Patient has correct armband on for positive identification. bb Administered Medications: 00:50 Drug: Dilaudid (HYDROmorphone) 0.5 mg Route: IVP; Site: right hand; bb 02:50 Follow up: Response: No adverse reaction; Pain is decreased; RASS: Alert and Calm (0) bb 02:32 Drug: NS 0.9% 1000 ml Route: IV; Rate: 1000 ml; Site: right hand; bb 02:32 Drug: Zofran (Ondansetron) 4 mg Route: IVP; Site: right hand; bb 03:08 Follow up: Response: No adverse reaction bb 02:35 Drug: Etomidate 10 mg Route: IVP; Site: right hand; bb 02:51 Follow up: Response: No adverse reaction bb 03:06 Not Given (Other Intervention Used): fentaNYL (PF) 50 mcg IVP once; RASS on ADMIN: bb Combtv4, Very Agttd3, Agttd2, Rstlss1, AlertClm0, Drwsy-1, Lt Sdtn-2, Mod Sdtn-3, Dp Sdtn-4, UnArsble-5 03:07 Drug: fentaNYL (PF) 50 mcg Route: IM; Site: right deltoid; bb 03:36 Follow up: Response: No adverse reaction; Pain is decreased; RASS: Alert and Calm (0) bb Outcome: 02:58 Discharge ordered by . jr8 03:38 Discharged to home via wheelchair, with family. bb 03:38 Condition: stable 03:38 Discharge instructions given to patient, Instructed on discharge instructions, follow up and referral plans. Demonstrated understanding of instructions, follow-up care. 03:39 Patient left the ED. bb Signatures: Dispatcher [employer] Jessica Liu RN RN bb Artie Frey PA PA jr8 Patience Higgins RN RN ld1 Corrections: (The following items were deleted from the chart) 03:39 02:08 No provider procedures requiring assistance completed. brooke cox
[2021-06-03] MEDS ORDERED: FENTANYL CITR 100 MCG/2 ML ONE (03:00)
[2021-06-03 03:47] VITALS: TEMP 98.1
[2021-06-03 03:51] VITALS: BP 132/71; O2SAT 97
--- NOTE | 2021-06-03 04:49 | CON ---
Date of Consultation: 06/03/2021 History Of Present Illness: I have seen this patient in the past, however, for a completely different problem. I am called tonio because the patient is seen in the emergency department for complaints of pain in the left hip. On further review of his history, he apparently fell about a week ago. He went to an outside facility where x-rays were taken which demonstrated dislocated hip. He was then apparently discharged without attempts at any reduction of the hip and arrives back to our emergency room today with complaints of significant pain in the hip. X-rays were taken today which demonstrated what appeared to be some old fragmentation of the acetabulum; however, further fracture at that time was not ruled out. Also, with a superior and posterior dislocation of the hip, there does not appear to be significant AVN of the hip. Physical Examination: He does have an adducted and shortened left lower extremity. He has well healed scar from plastic surgery for trochanteric wound. 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 I am called and reviewed the x-rays of what appears to be a hip which has only recently been dislocated, however, maybe dislocated as long as 7 days with possible associated new acetabular fractures, although there appeared to be old acetabular fractures. After written informed consent was obtained, conscious sedation was performed and the hip while fairly mobile and easily palpable probably perches and does not enter the acetabulum properand dislocates quite freely. Generally could not get a good reduction that was stable. Despite relatively strong pressure, there is some concern about overtraumatizing because of concerns of causing osteoporotic femur fracture or other additional cause of injury. Assessment: This is a 40-year-old paraplegic male with a hip dislocation, which is at least 7-day-old which failed attempted closed reduction with sedation. Plan: We will speak with the emergency department. He is strictly nonambulatory and there are multiple plans which could be considered, however, most likely this is to be addressed by tertiary care center. These could include possible operative open reduction with clearance of the acetabulum. Then, if this is stable, they would decide whether or not on proceeding with any acetabular stabilization. Also, there is a possibility of simply leaving the hip dislocated in hopes that the pain will fade. Third option would be a [place]. I think the decision making process for this and the procedures to be done other than simple closed management probably would be best decided at a tertiary center. I have expressed this to the ER staff. I do not believe there is any current emergent need for operative intervention. ROSA Voice ID: [id number] Report ID: [id number] NELLIE
--- NOTE | 2021-06-03 07:57 | RAD REPORT ---
EXAM DESCRIPTION: RAD - Hip Left 2 View - 06/03/2021 12:15 am CLINICAL HISTORY: Left hip pain FINDINGS: Left femoral head is dislocated superolaterally. No acute fracture visualized
== END 2021-06-03 03:39 | disposition home or self-care (01) ==
LOC: ER 22:37
PROC: 0QS5XZZ Reposition Left Acetabulum, External Approach (ICD-10-PCS; principal; 2021-06-03)
DX: S32.402A Unspecified fracture of left acetabulum, initial encounter for closed fracture (principal); G82.50 Quadriplegia, unspecified
CPT/HCPCS: 85025; 80048; 36415; 73502; 96375; 96372; 96374; 99284; 27222; J3010; J1170; J7030; J2405

== ENCOUNTER 2022-03-15 21:41 | Emergency (ER) | payer OTHER ==
--- OUTSIDE RECORDS SUMMARY | 2022-03-15 21:46 | XMS REPORT | Continuity of Care Document ---
:1980 Author Organization [facility] t Address [address] [place] [address] Care Team Providers Name Role Phone Sinai Morton MD Primary Care Physician PATRICK WALKER Attending Clinician Unavailable PAM CHO Attending Clinician Unavailable Archana Cerda MD Attending Clinician Miranda Avila MA Attending Clinician Unavailable KIRILL Attending Clinician Unavailable KOVACEV_T Attending Clinician Unavailable RIYA RIOS Attending Clinician Unavailable Irene Mitchell MD Attending Clinician Doctor Unassigned, [place] Attending Clinician Unavailable BRETT BELL Attending Clinician Unavailable SHAZIA Attending Clinician Unavailable Pam Cho MD Attending Clinician PAM CHO Admitting Clinician Unavailable KIRILL Admitting Clinician Unavailable KOVACEV_T Admitting Clinician Unavailable BRETT BELL Admitting Clinician Unavailable SHAZIA Admitting Clinician Unavailable Pam Cho MD Admitting Clinician Payers Payer Name Policy Type Policy Number Effective Date Expiration Date S ource MEDICARE PART A [id number] 2009 2024 AND B 00:00:00 00:00:00 MEDICARE PART A [id number] 2009 \\T\\ B 00:00:00 [place] [id number] 2020 MEDICAID 00:00:00 [place] B[place]: [id number] 2009 [employer] 00:00:00 [place]way [id number] [place] Problems Condition Condition Condition Status Onset Resolution Last Treating Co mments Source Name Details Category Date Date Treatment Clinician Date Partial Partial Disease Active Univers small small 08-05 ity of bowel bowel 00:00: [place] obstructio [...] and Disease Active Unive rs swelling swelling 06-29 ity of of right of right 00:00: [...] Active 2014-06 Univers joint of joint of ity of right right 00:00: [place] elbow elbow 00 Medical Branch Allergies, Adverse Reactions, Alerts Allergy Allergy Status Severity Reaction(s) Onset Inactive Treating Comm ents Source Name Type Date Date Clinician Ceftriax Propensi Active Other (See vomiting Methodi one ty to Comments) 2-14 st adverse 00:00: Hospita reaction 00 l s to drug NO KNOWN Drug Active Univers ALLERGIE Class ity of S [place] [facility] Family History Family Member Diagnosis Comments Start Date Stop Date Source Natural father Diabetes Natural father Stroke Natural mother Hypertension [facility] Natural sister Social History Social Habit Start Date Stop Date Quantity Comments Source Exposure to Not sure University of SARS-CoV-2 [facility] (event) Branch Alcohol intake 2022-03-10 2022-03-10 Current [facility]oroastrian 00:00:00 00:00:00 non-drinker of Hospital alcohol (finding) Tobacco use and 2021-07-20 2021-07-20 Smokeless tobacco Me [facility]od[facility] exposure 00:00:00 00:00:00 non-user Hospital History SDOK 2020-08-05 2020-08-05 4 University o f Financial 00:00:00 00:00:00 [place] [facility] History SDOK Food 2020-08-05 2020-08-05 1 Univers ity of Worry 00:00:00 00:00:00 [place] [facility] History [facility] Food 2020-08-05 2020-08-05 1 Univers ity of Scarcity 00:00:00 00:00:00 [place] [facility] History SDOK 2020-08-05 2020-08-05 2 University o f Transport Med 00:00:00 00:00:00 [place] Medic al Branch History [facility] 2020-08-05 2020-08-05 2 University o f Transport Non-Med 00:00:00 00:00:00 [facility] edical Branch Sex Ass[birth year] At [birth year] Zoroastrian 00:00:00 00:00:00 Hospital Smoking Status Start Date Stop Date Source Tobacco smoking consumption unknown [facility] Never smoked tobacco [facility] ospital Medications Ordered Filled Start Stop Current Ordering Indication Dosage Frequency Signature Comments Components Source Medication Medication Date Date Medication? Clinician (SIG) Name Name onabotulinu 2021- No [id number] 200U Methodi mtoxinA 03-10 st (BOTOX) 14:15: 15:29 Hospita injection 00 :00 l 200 Units onabotulinu 2021- No [id number] 100U Methodi mtoxinA 03-10 st (BOTOX) 14:00: 14:13 Hospita injection 00 :53 l 100 Units gentamicin Yes [id number] 80mg Met hodi (GARAMYCIN) 02-23 st injection 14:15: Hospita 80 mg 00 l amoxicillin 2021- No 1{tbl} Q.5D Take 1 M ethodi -pot 02-[address] clavulanate 00:00: 04:59 mouth 2 Ho spita (AUGMENTIN) 00 :00 (two) l 875-125 mg times a per tablet day for 5 days. sulfamethox 2021- No 1{tbl} Q.5D Take 1 M ethodi azole-trime 08-24-[address] thoprim 00:00: 05:59 mouth 2 Hospit a (BACTRIM 00 :00 (two) l DS) 800-160 times a mg per day for 3 tablet days. sulfamethox 2021- No 1{tbl} Q.5D Take 1 M ethodi azole-trime 07-[address] thoprim 00:00: 05:59 mouth 2 Hospit a (BACTRIM 00 :00 (two) l DS) 800-160 times a mg per day for 5 tablet days. FENTanyl Yes 1{patch Apply 1 Uni vers [...] mouth ity of n 22:27: every 8 [place] (PERCOCET) 42 (eight) Medica l 10-325 mg hours as Branch per tablet needed for Pain. solifenacin Yes 10mg Take 10 mg Univers (VESICARE) 2-10 by mouth ity o f 10 mg 22:27: daily. [place] tablet 42 Medical Branch diazepam Yes 5mg Take 5 mg Univ ers (VALIUM) 5 2-10 by mouth 3 ity of mg tablet 22:27: (three) [place] 42 times Medical daily. Branch FENTanyl Yes 1{patch Apply 1 Uni vers (DURAGESIC) 2-10 } Patch to ity of 75 mcg/hr 22:27: skin every [place] patch 42 72 Medical (seventy-t Branch wo) hours. oxyCODONE-a Yes 1{tbl} Take 1 Tab Univers cetaminophe 2-10 by mouth ity of n 22:27: every 8 [place] (PERCOCET) 42 (eight) Medica l 10-325 mg hours as Branch per tablet needed for Pain. solifenacin Yes 10mg Take 10 mg Univers (VESICARE) 2-10 by mouth ity o f 10 mg 22:27: daily. [place] tablet 42 Medical Branch diazepam Yes 5mg Take 5 mg Univ ers (VALIUM) 5 2-10 by mouth 3 ity of mg tablet 22:27: (three) [place] 42 times Medical daily. Branch sodium No 15mmol 15 mmol, Univ ers phosphate 2-10 02-10 IV ity of 15 mmol in 17:00: 21:43 Piggyback, [place] NaCl 0.9% 00 :00 ONCE, 1 Medical (NS) 250 mL dose, Wed [facility] piggyback 08/06/20 at 1100, 250 mL Vancomycin [...] IV Push, ity of mg 03:30: Q4HPRN, [place] 00 Starting Medical Tue08/05/20 [place] at 2130, Until Discontinu ed, Routine, Pain (scale 7-10) lactobacill Yes 1{tbl} 1 tablet, Univers us 2-10 Oral, BID, ity of acidophilus 02:00: First dose [place] (ACIDOPHILL 00 on [facility] l US) 25 08/05/20 at [place] million 2000, cell -100 Until mg captab 1 Discontinu tablet ed, Routine enoxaparin Yes 40mg 40 mg, Unive rs (LOVENOX) 209 Subcutaneo ity of injection 23:00: [place], DAILY, [place] 40 mg 00 First dose Medical on Tue [place] 08/05/20 at 1700, Until Discontinu ed, Routine acetaminoph 2020- No 1000mg 1,000 mg, Univers en ADULT 08-05 02-10 IV ity of (OFIRMEV) 20:00: 12:24 [place]fusion, [place] injection 00 :00 Administer Medi obdulio 1,000 mg over 15 Branch Minutes, Q8H, 3 doses, First dose (after last modificati on) on Tue08/05/20 at 1400, Last dose on Tue08/06/20 at 0600, Routine
Indicatio n: Non-periop erative Patient
Approved by: Per Policy (NPO Status) morpHINE No 4mg 4 mg, Slow Un ky injection 4 08-05 IV Push, ity of mg 20:00: 03:15 Q8H, First [place] 00 :54 dose on Medical e 08/05/20 Branch at 1400, Until Discontinu ed, Routine NaCl 0.9% No 1000mL at 150 Uni vers (NS) bolus 08-05 mL/hr, ity of infusion 19:45: 18:50 1,000 mL, Frankie as 1,000 mL 00 :00 IV [facility] Branch ONCE, 1 dose, e 08/05/20 at 1345, STAT NaCl 0.9% Yes 150mL/h IV Unive rs (NS) 1000 08-05 Infusion, ity o f mL + KCL 20 19:30: at 150 [place] mEq 00 mL/hr, Medical CONTINUOUS Branch , Starting Tue08/05/20 at 1330, Until Discontinu ed, Routine vancomycin No 1000mg 1,000 mg, Univers (VANCOCIN) 08-05 IV ity of 1,000 mg in 19:15: 00:25 [place], [place] NaCl 0.9% 00 :46 Q12H ABX, Medic al (NS) 250 mL First dose Br anch VIAL-MATE on Tue IV 08/05/20 at piggyback 1315, Until Discontinu ed, 250 mL
R fatimah for Anti-Infec tive: Documented Infection< br>Documen clyde Infection Site: Bone
Du ration of Therapy: Other (see Comments) ondansetron Yes 4mg 4 mg, Slow Univers (ZOFRAN 08-05 IV Push, ity of (PF)) 18:30: Q6HPRN, [place] injection 4 25 Starting Medi obdulio mg [facility] 08/05/20 Branch at 1230, Until Discontinu ed, Routine, Nausea and Vomiting (N/V) carisoprodo Yes 350mg Q8H Take 350 M ethodi l (SOMA) 2-[address] 350 MG 01:24: mouth Hospita tablet 15 every 8 l (eight) hours as needed for muscle spasms. HYDROcodone 2017-0 Yes 1{tbl} Q4H Take 1 Me thodi -acetaminop 2-[address] hen (AgroSavfe) 01:24: mouth Hospi ta 10-325 mg 15 every 4 l per tablet (four) hours as needed for moderate pain. oxybutynin 2018-0 Yes 15mg QD Take 15 mg M ethodi XL 2-[address] (DITROPAN-X 01:24: nightly. Ho spita L) 5 MG 24 15 l hr tablet oxybutynin 2018-0 Yes 15mg QD Take 15 mg M ethodi XL 2-[address] (DITROPAN-X 19:24: nightly. Ho spita L) 5 MG 24 15 l hr tablet carisoprodo 2018-0 Yes 350mg Q8H Take 350 M ethodi l (SOMA) 2-[address] 350 MG 19:24: mouth Hospita tablet 15 every 8 l (eight) hours as needed for muscle spasms. HYDROcodone 2018-0 Yes 1{tbl} Q4H Take 1 Me thodi -acetaminop 2-[address] hen (AgroSavfe) 19:24: mouth Hospi ta 10-325 mg 15 every 4 l per tablet (four) hours as needed for moderate pain. sulfamethox 2016-0 Yes 1{tbl} Take 1 Tab Univers azole-trime 1-12 by mouth 2 it y of thoprim 00:00: (two) [place] (BACTRIM 00 times Medical DS) 800-160 daily. Branch mg per tablet rifampin 2016-0 Yes 300mg Take 1 Cap Un ky (RIFADIN) 1-12 by mouth ity of 300 mg 00:00: daily. [place] capsule Medical Branch sulfamethox 2016-0 Yes 1{tbl} Take 1 Tab Univers azole-trime 1-12 by mouth 2 it y of thoprim 00:00: (two) [place] (BACTRIM 00 times Medical DS) 800-160 daily. Branch mg per tablet rifampin 2016-0 Yes 300mg Take 1 Cap Un ky (RIFADIN) 1-12 by mouth ity of 300 mg 00:00: daily. [place] capsule 00 Medical Branch sulfamethox 2016-0 Yes 1{tbl} Take 1 Tab Univers azole-trime 1-12 by mouth 2 it y of thoprim 00:00: (two) [place] (BACTRIM 00 times Medical DS) 800-160 daily. Branch mg per tablet rifampin 2016-0 Yes 300mg Take 1 Cap Un ky (RIFADIN) 1-12 by mouth ity of 300 mg 00:00: daily. [place] capsule Medical Branch Vital Signs Vital Name Observation Time Observation Value Comments Source Systolic blood 2020-08-06 17:15:00 116 mm[Hg] Univer sity of pressure [facility] Diastolic blood 2020-08-06 17:15:00 81 mm[Hg] Unive rsity of [facility] Heart rate 2020-08-06 17:15:00 85 /min Universi ty [facility] Body temperature 2020-08-06 17:15:00 36.61 Breann Univ ersity of [facility] Respiratory rate 2020-08-06 17:15:00 16 /min Univ ersity of [facility] Oxygen saturation in 2020-08-06 17:15:00 96 /min University of Arterial blood by [place] [employer] obdulio Pulse oximetry Branch Body weight 2020-08-06 09:55:00 60.328 kg Universi ty of [facility] BMI 2020-08-06 09:55:00 16.62 kg/m2 Universi ty [facility] Body height 2020-08-05 18:12:00 190.5 cm Universi ty [facility] Systolic blood 2020-08-06 17:15:00 116 mm[Hg] Univer sity of [facility] Diastolic blood 2020-08-06 17:15:00 81 mm[Hg] Unive rsity of [facility] Heart rate 2020-08-06 17:15:00 85 /min Universi ty [facility] Body temperature 2020-08-06 17:15:00 36.61 Breann Univ ersity of [facility] Respiratory rate 2020-08-06 17:15:00 16 /min Univ ersity of [facility] Oxygen saturation in 2020-08-06 17:15:00 96 /min University of Arterial blood by [place] [employer] Pulse oximetry Branch Body weight 2020-08-06 09:55:00 60.328 kg Universi ty of [facility] BMI 2020-08-06 09:55:00 16.62 kg/m2 [facility] Body height 2020-08-05 18:12:00 190.5 cm [facility] Procedures Procedure Date / Time Performing Clinician Source Performed POC URINALYSIS DIPSTICK 2022-03-10 15:27:14 [facility] URINE CULTURE 2022-02-17 21:25:00 [facility] spital URINALYSIS, AUTOMATED 2022-02-17 21:25:00 [facility] WITH MICROSCOPY MICROSCOPIC EXAMINATION 2022-02-17 21:25:00 [facility] POC URINALYSIS DIPSTICK 2021-08-24 20:09:00 [facility] URINE CULTURE 2021-07-20 22:36:00 [facility] spital POC URINALYSIS DIPSTICK 2021-07-20 20:40:00 [facility] EXTERNAL PROVIDER 2020-10-29 05:01:00 Doctor Unassigned, No [facility] Name [facility] EXTERNAL PROVIDER 2020-09-01 06:01:00 Doctor Unassigned, No [facility] RECORDS Name [facility] PHOSPHORUS 2020-08-06 10:11:00 jena [facility] [place] [facility] MAGNESIUM 2020-08-06 10:11:00 [facility] BASIC METABOLIC PANEL 2020-08-06 10:11:00 Pam Cho [facility] (NA, K, CL, CO2, [facility] GLUCOSE, BUN, CREATININE, CA) CBC WITH DIFF 2020-08-06 10:11:00 [facility] 2020-08-06 02:40:00 Pam Cho [facility] HB ECG ROUTINE & RHYTHM 2020-08-05 23:43:39 Pam Cho [facility] LACTIC ACID WHOLE BLOOD 2020-08-05 23:40:00 Pam Cho [facility] ABORH CONFIRMATION 2020-08-05 22:45:00 Pam Cho [facility] HB ABO GROUPING 2020-08-05 21:21:00 Pam Cho [facility] PHOSPHORUS 2020-08-05 21:17:00 Leoniejena [facility] [place] [facility] MAGNESIUM 2020-08-05 21:17:00 jena [facility] COMP. METABOLIC PANEL 2020-08-05 21:17:00 Pam Cho [facility] (72798[facility] CBC WITH DIFF 2020-08-05 21:17:00 Pam Cho [facility] VANCOMYCIN TROUGH 2020-08-05 21:16:00 Shiva [facility] PROTHROMBIN TIME / INR 2020-08-05 21:16:00 Pam Cho [facility] BLOOD CULTURE SCREEN 2020-08-05 21:15:00 Pam Cho [facility] LACTIC ACID WHOLE BLOOD 2020-08-05 21:11:00 Pam Cho [facility] XR CHEST 1 VW 2020-08-05 20:15:50 Pam Cho [facility] CT ABDOMEN PELVIS W 2020-08-05 19:05:19 Nedra Boyce [facility] Plan of Care Planned Activity Planned Date Details Comments Source Future Scheduled 2022-03-15 HEPATITIS B [facility] Test 09:12:54 VACCINES (1 of 3 - 3-dose series) [code = HEPATITIS B VACCINES (1 of 3 - 3-dose series)] Future Scheduled 2022-03-15 COVID-19 VACCINE [facility] Hospital Test 09:12:54 (#1) [code = COVID-19 VACCINE (#1)] Future Scheduled 2022-03-15 Hepatitis C [facility] Test 09:12:54 screening (procedure) [code = 215754124] Future Scheduled 2022-03-15 INFLUENZA VACCINE Method [facility] Hospital Test 09:12:54 [code = INFLUENZA VACCINE] Future Scheduled COVID-19 VACCINE [facility] Test (1) [code = COVID-19 VACCINE (1)] Future Scheduled INFLUENZA VACCINE [facility] Test [code = INFLUENZA VACCINE] Encounters Start End Encounter Admission Attending Care Care Encounter Source Date/Time Date/Time Type Type Clinicians Facility Department ID 2021-03-07 Outpatient [facility] [id number] [place] 01:06:09 [facility] 2020-08-05 Inpatient Blanca [facility] [id number] [facility] 11:35:00 PAM chagonenita [facility] 2022-03-10 2022-03-10 Procedure Khavari, 1.2.840.1 [id number] Methodi 08:30:00 09:50:01 visit Archana 53515.1.[address] 3.430.2.7 Hospit a .3.918050 l .8 2022-03-10 2022-03-10 Refill Ikner, 1.2.840.1 [id number] Methodi 00:00:00 00:00:[address] 3.430.2.7 Hospit a .3.494305 l .8 2022-03-10 2022-03-10 Travel 1.2.840.1 1.2.645.369 [id number] Methodi 00:00:00 00:00:[address] 3.430.2.7 0.2.7.3.698 Ho spita .3.822893 084.8 l .8 2022-03-10 2022-03-10 Outpatient COLT, [facility] [id number] Letha 00:00:00 00:00:[address]NA [address] 2022-02-17 2022-03-08 Procedure Khavari, 1.2.840.1 [id number] Methodi 11:00:00 08:53:29 visit Archana 70566.1.[address] 3.430.2.7 Hospit a .3.831895 l .8 2022-02-23 2022-02-23 Refill Ikner, 1.2.840.1 [id number] Methodi 00:00:00 00:00:[address] 3.430.2.7 Hospit a .3.612094 l .8 2022-02-23 2022-02-23 Refill Margarita, 1.2.840.1 [id number] Methodi 00:00:00 00:00:[address] 3.430.2.7 Hospit a .3.352936 l .8 2022-02-17 2022-02-17 Travel 1.2.840.1 1.2.339.782 [id number] [id number] Methodi 00:00:00 00:00:[address] 3.430.2.7 0.2.7.3.698 Ho spita .3.649969 084.8 l .8 2022-02-17 2022-02-17 Outpatient COLT [facility] [id number] Letha 00:00:00 00:00:00 ARCHANA [address] 2022-02-02 2022-02-02 Telephone Colt 1.2.840.1 [id number] Methodi 00:00:00 00:00:[address] 3.430.2.7 Hospit a .3.919868 l .8 2022-01-22 2022-01-22 Outpatient IZABELA FIGUEROA 836 [facility] 00:00:00 00:00:00 0729 [facility] Program 2021-08-24 2021-08-24 [facility] Colt, 1.2.840.1 [id number] Methodi 14:00:00 23:59:00 Encounter Archana 87310.1.[address] 3.430.2.7 Hospit a .3.419924 l .8 2021-08-24 2021-08-24 Procedure Colt 1.2.840.1 [id number] Methodi 13:00:00 14:43:34 visit Archana 42609.1.[address] 3.430.2.7 Hospit a .3.596177 l .8 2021-08-24 2021-08-24 Travel 1.2.840.1 1.2.020.744 [id number] Methodi 00:00:00 00:00:[address] 3.430.2.7 0.2.7.3.698 Ho spita .3.025799 084.8 l .8 2021-08-24 2021-08-24 Outpatient [facility] [id number] Letha 00:00:00 00:00:00 ARCHANA [address] 2021-08-24 2021-08-24 Outpatient [facility] [id number] Letha 00:00:00 00:00:00 ARCHANA [address] 2021-07-24 2021-07-24 Orders Ikner, 1.2.840.1 [id number] Methodi 00:00:00 00:00:00 Only [place] [address]68.1.[address] 3.430.2.7 Hospit a .3.807491 l .8 2021-07-20 2021-07-20 Office Colt, 1.2.840.1 [id number] Methodi 13:30:00 15:25:35 Visit Archana 67158.1.[address] 3.430.2.7 Hospit a .3.447608 l .8 2021-07-20 2021-07-20 Outpatient [facility] [id number] Letha 00:00:00 00:00:00 [address]CHANA [address] 2021-07-20 2021-07-20 Travel 1.2.840.1 1.2.893.205 [id number] [id number] Methodi 00:00:00 00:00:[address] 3.430.2.7 0.2.7.3.698 Ho spita .3.409446 084.8 l .8 2021-07-17 2021-07-17 Outpatient KOVACEV_T [facility] [id number] [place] 03:51:00 03:51:00 121 Commun i ty Hospita l Clinics 2021-06-29 2021-06-29 Telephone [place], 1.2.840.1 [id number] Methodi 00:00:00 00:00:[address] 3.430.2.7 Hospit a .3.573421 l .8 2021-04-10 2021-04-10 EXT MHH OP EXT MSRDP 1.2.840.114 1 [id number] [place] 00:00:00 00:00:00 LOCATION 350.1.13.58 H ealth 9.2.7.2.686 [id number] 0 2021-04-10 2021-04-10 EXT MHH OP EXT MSRDP 1.2.840.114 1 [id number] [place] 00:00:00 00:00:00 LOCATION 350.1.13.58 H ealth 9.2.7.2.686 [id number] 0 2021-04-10 2021-04-10 EXT MHH OP [place], EXT MSRDP 1.2.840.114 [id number] [place] 00:00:00 00:00:00 Patrick E LOCATION 350.1.13.58 H ealth 9.2.7.2.686 [id number] 0 2021-04-10 2021-04-10 EXT MHH OP EXT MSRDP 1.2.840.114 1 [id number] [place] 00:00:00 00:00:00 LOCATION 350.1.13.58 H ealth 9.2.7.2.686 [id number] 0 2021-04-10 2021-04-10 EXT MHH OP EXT MSRDP 1.2.840.114 1 [id number] [place] 00:00:00 00:00:00 LOCATION 350.1.13.58 H ealth 9.2.7.2.686 [id number] 0 2021-04-10 2021-04-10 EXT MHH OP [place], EXT MSRDP 1.2.840.114 [id number] [place] 00:00:00 00:00:00 Patrick E LOCATION 350.1.13.58 H ealth 9.2.7.2.686 [id number] 0 2021-04-08 2021-04-09 Outpatient RIYA RIOS [facility] 757 5 [facility] 15:15:00 11:21:00 2021-01-02 2021-01-02 EXT MHH OP [place], EXT MSRDP 1.2.840.114 [id number] [place] 00:00:00 00:00:00 Patrick Moscoso LOCATION 350.1.13.58 H ealth 9.2.7.2.686 [id number] 0 2020-12-28 2020-12-28 EXT MHH OP Mitchell, EXT MSRDP 1.2.840.114 1 [id number] [place] 00:00:00 00:00:00 Irene D LOCATION 350.1.13.58 Health 9.2.7.2.686 [id number] 0 2020-12-28 2020-12-28 EXT MHH OP Mitchell, EXT MSRDP 1.2.840.114 1 [id number] [place] 00:00:00 00:00:00 Irene D LOCATION 350.1.13.58 Health 9.2.7.2.686 [id number] 0 2020-10-29 2020-10-29 Orders Doctor RIYA 1.2.840.114 [id number] 00:00:00 00:00:00 Only Unassigned, ERIKA 350.1.13.10 [place] [facility] 4.2.7.2.686 [id number] 009 2020-10-29 2020-10-29 Orders Doctor RIYA 1.2.840.114 [id number] Univers 00:00:00 00:00:00 Only Unassigned, ERIKA 350.1.13.10 ity of [place] [facility] 4.2.7.2.686 Frankie as [id number] [place] [address] Branch 2020-10-14 2020-10-22 Inpatient BELL [facility] MED [id number] [facility] 17:03:00 16:30:00 BRETT 2020-10-13 2020-10-13 EXT MHH OP [place], EXT MSRDP 1.2.840.114 [id number] [place] 00:00:00 00:00:00 Patrick Moscoso LOCATION 350.1.13.58 H ealt 9.2.7.2.686 [id number] 0 2020-10-13 2020-10-13 EXT MHH OP [place], EXT MSRDP 1.2.840.114 [id number] [place] 00:00:00 00:00:00 Patrick Moscoso LOCATION 350.1.13.58 H ealth 9.2.7.2.686 [id number] 0 2020-09-29 2020-09-29 Outpatient HUTTON_L [facility] [id number]- [id number] [place] 09:44:00 09:44:00 0[facility] 2020-09-01 2020-09-01 Orders Doctor RIYA 1.2.840.114 [id number] 00:00:00 00:00:00 Only Unassigned, ERIKA 350.1.13.10 [place] [facility] 4.2.7.2.686 [id number] 009 2020-09-01 2020-09-01 Orders Doctor RIYA 1.2.840.114 [id number] [facility] 00:00:00 00:00:00 Only Unassigned, ERIKA 350.1.13.10 ity of [place] [facility] 4.2.7.2.686 Frankie [id number] [place] [address] Branch 2020-08-05 2020-08-06 [facility] 1.2.840.114 [id number] 11:35:00 13:28:00 Encounter Pam Sawant 350.1.13.10 [place] 4.2.7.2.686 [place] [id number] 2020-08-05 2020-08-06 [facility] 1.2.840.114 [id number] [facility] 11:35:00 13:28:00 Encounter Pam Sawant 350.1.13.10 ity of [place] 4.2.7.2.686 [facility] [id number] [place] [address] Branch Results Test Description Test Time Test Comments Results Result Comments Source POC urinalysis dipstick 2022-03-10 15:27:14 Test Item Value Reference Range Interpretation Comme nts Color urine, POC (test code = Yellow 3825438) Clarity urine, POC (test code = Clear 6985311) Glucose urine, POC (test code = Negative Negative 3443010) Bilirubin urine, POC (test code = Negative Negative 2737640) Ketones urine, POC (test code = Negative Negative 2625700) Specific gravity urine, POC (test 1.005-1.030 code = 6975578) Blood urine, POC (test code = Trace Negative A 8214907) pH urine, POC (test code = See_Comment [Automated message] The 5229169) system which ge nerated this result transmit clyde reference range: 5.0, 5.5 , 6.0, 6.5, 7.0, 7.5, 8.0, 8.5. The reference range was not used to interpret th is result as normal/abnormal . Protein urine, POC (test code = 3+ Negative A 4743992) Urobilinogen urine, POC (test <2.0 See_Comment [Automated message] The code = 3247132) system which generated this result transmit clyde reference range: <=2.0. T he reference range was not u sed to interpret this result as normal/abnormal . Nitrite urine, POC (test code = Negative Negative 0289044) Leukocyte esterase urine, POC Trace Negative A (test code = 4734516) Lab Interpretation (test code = Abnormal 80557-7) [facility] [id number] 12:59:00 Test Item Value Reference Range Interpretation Comments Specific gravity, 1.005-1.03 urine (test code = 5811-5) pH, urine (test code 5-7.5 = 5803-2) Color, UA (test code Yellow Yellow = 5778-6) Appearance (test code Clear Clear = 5767-9) WBC esterase, urine 1+ Negative A (test code = 5799-2) Protein, UA (test Negative Negative/Trace code = 45576-9) Glucose, urine (test Negative Negative code = 38235-8) Ketones, UA (test Negative Negative code = 2514-8) Occult blood, urine Negative Negative (test code = 5794-3) Bilirubin, UA (test Negative Negative code = 5770-3) Urobilinogen, UA 0.2 mg/dL 0.2-1 (test code = 83353-1) Nitrite, UA (test Positive Negative A code = 5802-4) Microscopic See below: Microscopic was examination (test indicated and was code = 79511-9) performed. KRYSTIAN (test code = KRYSTIAN) Performed at: [address] [place] [address] [id number] Director: Ludwig Kolb MD, Phone: [phone] Lab Interpretation Abnormal (test code = 43938-6) Microscopic [id number] 12:59:00 Test Item Value Reference Range Interpretation Comments WBC, UA (test code = 05-26 See_Comment A [Autom ated 5821-4) message] The system which generated this result transmitted reference range : 0 - 5 /hpf. The reference range was not used to interpret this result as normal/abnormal . RBC, UA (test code = None seen See_Comment [Autom ated 00612-9) message] The system which generated this result transmitted reference range : 0 - 2 /hpf. The reference range was not used to interpret this result as normal/abnormal . Epithelial cells (non 0-10 See_Comment [Auto mated renal) (test code = message] The 5787-7) system which generated this result transmitted reference range : 0 - 10 /hpf. Th e reference range was not used to interpret this result as normal/abnormal . Casts (test code = None seen None seen /lpf 84861-4) Bacteria, UA (test Moderate None seen/Few A code = 5769-5) KRYSTIAN (test code = KRYSTIAN) Performed at: [address] [place] [address] [id number] Director: Ludwig Kolb MD, Phone: [phone] Lab Interpretation Abnormal (test code = 04055-1) [facility] CBC with [id number] 14:44:00 Test Item Value Reference Range Interpretation Comments WBC (test code = See_Comment [Automated 6690-2) message] The system which generated this result transmitted reference range : 4.20 - 10.70 10*3/?L. The reference range was not used to interpret this result as normal/abnormal . RBC (test code = See_Comment L [Automated 789-8) message] The system which generated this result transmitted reference range : 4.26 - 5.52 10*6/?L. The reference range was not used to interpret this result as normal/abnormal . HGB (test code = 9.2 g/dL 12.2-16.4 L 718-7) HCT (test code = 30.5 % 38.4-49.3 L 4544-3) MCV (test code = 94.4 fL 81.7-95.6 787-2) MCH (test code = 28.5 pg 26.1-32.7 785-6) MCHC (test code = 30.2 g/dL 31.2-35 L 786-4) RDW-SD (test code = 55.4 fL 38.5-51.6 H 19277-4) RDW-CV (test code = 16.0 % 12.1-15.4 H 788-0) PLT (test code = See_Comment [Automated 777-3) message] The system which generated this result transmitted reference range : 150 - 328 10*3/?L. The reference range was not used to interpret this result as normal/abnormal . MPV (test code = 9.9 fL 9.8-13 52594-4) NRBC/100 WBC (test See_Comment [Automat ed code = 7230328480) message] The system which generated this result transmitted reference range : 0.0 - 10.0 /100 WBCs. The reference range was not used to interpret this result as normal/abnormal . NRBC x10^3 (test code <0.01 See_Comment [Auto mated = 7109792826) message] The system which generated this result transmitted reference range : 10*3/?L. The reference range was not used to interpret this result as normal/abnormal . GRAN MAT (NEUT) % 74.3 % (test code = 770-8) IMM GRAN % (test code 0.30 % = 1453002661) LYMPH % (test code = 11.8 % 736-9) MONO % (test code = 10.5 % 5905-5) EOS % (test code = 2.5 % 713-8) BASO % (test code = 0.6 % 706-2) GRAN MAT x10^3(ANC) 5.15 10*3/uL 1.99-6.95 (test code = 2520187087) IMM GRAN x10^3 (test <0.03 0-0.06 code = 1752980022) LYMPH x10^3 (test 0.82 10*3/uL 1.09-3.23 L code = 731-0) MONO x10^3 (test code 0.73 10*3/uL 0.36-1.02 = 742-7) EOS x10^3 (test code 0.17 10*3/uL 0.06-0.53 = 711-2) BASO x10^3 (test code 0.04 10*3/uL 0.01-0.09 = 704-7) BANDS (test code = MARKED INCREASED A 3032492719) Lab Interpretation Abnormal (test code = 34627-1) [facility] [id number] 14:43:06Impression: Findings consistent with small bowel obstruction with a transition point inthe distal small bowel, in the right side of the pelvis, close to a site ofprior anastomosis. The terminal ileum and the colon are unremarkable. Exam: CT ABDOMEN PELVIS W CONTRAST Clinical History: 40-year-old male Comparison: None Findings: Images acquired at [facility] were submitted forinterpretation. The visualized lung bases show a calcified granuloma in the right lungbase. There is no evidenceof pleural or pericardial effusion. The liver shows no focal lesions or ductal dilatation. The gallbl adder,kidneys, spleen, adrenals, and the pancreas are unremarkable. Minimal freefluid is seen in thepelvis with no evidence of free air orlymphadenopathy. Urinary bladder and prostate are unremarkable. There is dilated dictation and distention of small bowel loops seen in theabdomen and pelvis. A transition point is suspected in the distal smallbowel, right side of the pelvis close to the anastomotic sutures (2:79 fzb557:44). The terminal ileum is unremarkable. Colon shows a small amount ofstools. A colostomy seen in the left lower quadrant. A stimulator is seen in the right lower quadrant. The vasculature isunremarkable and the bones show degenerative changes with no suspiciousfocal lesions. [facility], Radiant Results Inft User - 08/06/2020 8:44 AM CSTExam: CT ABDOMEN PELVIS W CONTRASTClinical History: 40-year-old maleComparison: NoneFindings: Images acquired at [facility] were submitted forinterpretation.The visualized lung bases show a calcified granuloma in the right lungbase. There is no evidence of pleural or pericardial effusion.The liver shows no focal lesions or ductal dilatation. The gallbladder,kidneys, spleen, adrenals, and the pancreas are unremarkable. Minimal freefluid is seen in the pelvis with no evidence of free air orlymphadenopathy. Urinary bladder and prostateare unremarkable.There is dilated dictation and distention of small bowel loops seen in theabdomen and pelvis. A transition point is suspected in the distal smallbowel, right side of the pelvis close to the anastomotic sutures (2:79 eiq719:44). The terminal ileum is unremarkable. Colon shows [...] The terminal ileum and the colon are unremarkable.[facility] 11:33:00 Test Item Value Reference Range Interpretation Comments MAGNESIUM (test code = 2298256848) 1.7 mg/dL 1.7-2.4 Lab Interpretation (test code = Normal 98561-9) [facility] Basic Metabolic [facility] (NA, K, CL, CO2, GLUCOSE, BUN, CREATININE, CA)2020-08-06 11:32:00 Test Item Value Reference Range Interpretation Comments NA (test code = 139 mmol/L 135-145 6479842019) K (test code = 4.1 mmol/L 3.5-5 0331816450) CL (test code = 103 mmol/L 98-108 1137155309) CO2 TOTAL (test code = 32 mmol/L 23-31 H 0955981348) AGAP (test code = 2-16 3934532163) BUN (test code = 20 mg/dL 7-23 4193251306) GLUCOSE (test code = 91 mg/dL 70-110 0834486278) CREATININE (test code = 0.55 mg/dL 0.6-1.25 L 0529928348) CALCIUM (test code = 7.9 mg/dL 8.6-10.6 L 6356980260) eGFR Calculation mL/min/1.73m2 (Non-) (test code = 5236369064) eGFR Calculation mL/min/1.73m2 () (test code = 0971369069) KRYSTIAN (test code = KRYSTIAN) Association of [...] tests). Lab Interpretation Abnormal (test code = 67296-1) [facility]2021-02-10 11:32:00 Test Item Value Reference Range Interpretation Comments PHOSPHORUS (test code = 0658808984) 2.4 mg/dL 2.5-5 L Lab Interpretation (test code = Abnormal 99980-9) [facility]2021-02-10 03:22:00 Test Item Value Reference Range Interpretation Comments APPEARANCE (test code = Clear Clear 7400077155) COLOR (test code = Yellow Yellow 3391196671) PH (test code = 4.8-8.0 6025244663) SP GRAVITY (test code = 1.003-1.030 H 4259573158) GLU U QUAL (test code = Normal Normal 1049645767) BLOOD (test code = Negative Negative 1068190783) KETONES (test code = Negative Negative 9602050134) PROTEIN (test code = Negative Negative 2887-8) UROBILIN (test code = Normal Normal 1695997332) BILIRUBIN (test code = Negative Negative 4621790340) NITRITE (test code = Negative Negative 4062284448) LEUK EMILY (test code = Negative Negative 1379174830) RBC/HPF (test code = See_Comment H [Autom ated message] 9643841184) The system [employer] generated this result transmitted ref erence range: 0 - 3 HP F. The reference range was not used to int erpret this result as normal/abnormal . WBC/HPF (test code = See_Comment H [Autom ated message] 9148614714) The system [employer] generated this result transmitted ref erence range: 0 - 5 HP F. The reference range was not used to int erpret this result as normal/abnormal . BACTERIA (test code = Few Negative A 6627252512) SQ EPITH (test code = <1 HPF 7964970487) Lab Interpretation (test Abnormal code = 46943-0) [facility] DallasABORH [id number] 00:36:25 Test Item Value Reference Range Interpretation Comments ABO & RH (test code O Negative Performe d at [facility] = 20) Laboratory Serv [facility] Blood Bank[address] [place] [phone] Free: [phone] A No. [id number] [facility] DallasLactic Acid Whole [id number] 23:48:00 Test Item Value Reference Range Interpretation Comments LACTIC ACID (test code = 2.08 mmol/L 0.5-2.2 8932550092) Lab Interpretation (test code = Normal 37519-5) [facility] Dallas[facility]com[facility] Trough Level - Draw within 30 minutes prior to 2ND dose.2020-08-05 23:25:00 Test Item Value Reference Range Interpretation Comments VANCO TROUGH (test code <5.0 10-20 L = 4390278251) KRYSTIAN (test code = KRYSTIAN) Toxic Range: ?>20 ug/mL 15-20 ug/mL is recommended for severe infection or when Vancomycin IVET is greater than or equal to 2. Lab Interpretation (test Abnormal code = 90046-7) [facility] WITH [id number] 22:40:00 Test Item Value Reference Range Interpretation Comments WBC (test code = See_Comment [Automated 6690-2) message] The sy stem which generated this result transmitted reference range : 4.20 - 10.70 10*3/?L. The reference range was not used to interpret this result as normal/abnormal . RBC (test code = See_Comment L [Automated 789-8) message] The sy stem which generated this [...] (test code = 54.0 fL 38.5-51.6 H 41651-3) RDW-CV (test code = 16.2 % 12.1-15.4 H 788-0) PLT (test code = See_Comment [Automated 777-3) message] The sy stem which generated this result transmitted reference range : 150 - 328 10*3/ ?L. The reference r tarah was not used to interpret this result as normal/abnormal . MPV (test code = 10.2 fL 9.8-13 66094-7) NRBC/100 WBC (test See_Comment [Automat ed code = 8200740025) message] The system which generated this result transmitted reference range : 0.0 - 10.0 /100 WBCs. The refer ence range was not u sed to interpret th is result as normal/abnormal . NRBC x10^3 (test code <0.01 See_Comment [Auto mated = 9997238107) message] The s ystem which generated this result transmitted reference range : 10*3/?L. The reference range was not used to interpret this result as normal/abnormal . SEG % (test code = 77 % 33-76 H 22219-2) BAND % (test code = 5 % 0-1 H 61463-7) LYMPH % (test code = 10 % 14-54 L 76771-4) MONO % (test code = 8 % 0-4 H 21020-8) ANC (test code = 3.76 10*3/uL 1.99-6.95 6268002579) TOXIC CHANGES (test Present A code = 803-7) Lab Interpretation Abnormal (test code = 20145-0) [facility] DallasType and Screen - ONCE [id number] 22:33:59 Test Item Value Reference Range Interpretation Comments ABO & RH (test code O Negative Performe d at [facility] = 20) Laboratory Serv [facility] Blood Bank[address] [place], [place] [phone] Free: [phone] A No. [id number] IAT (test code = Negative Performed a t [facility] 1185) Laboratory [facility] Blood Bank[address] [place] [phone] Free: [phone] A No. [id number] [facility] DallasCOMP. METABOLIC PANEL (86221)2020-08-05 22:26:00 Test Item Value Reference Range Interpretation Comments NA (test code = 136 mmol/L 135-145 3302526013) K (test code = 4.3 mmol/L 3.5-5 7841014926) CL (test code = 98 mmol/L 98-108 7079833170) CO2 TOTAL (test code = 31 mmol/L 23-31 5428957826) AGAP (test code = 2-16 7792601756) BUN (test code = 27 mg/dL 7-23 H 9323922138) GLUCOSE (test code = 132 mg/dL 70-110 H 8141494979) CREATININE (test code = 0.63 mg/dL 0.6-1.25 0217838627) TOTAL BILI (test code = 0.5 mg/dL 0.1-1.7 4615404569) CALCIUM (test code = 8.8 mg/dL 8.6-10.6 4303382152) T PROTEIN (test code = 7.4 g/dL 6.3-8.2 6407231475) ALBUMIN (test code = 3.9 g/dL 3.5-5 4010817264) ALK PHOS (test code = 64 U/L 34-122 6114317344) ALTv (test code = 17 U/L 5-50 1742-6) AST(SGOT) (test code = 23 U/L 13-40 1473729075) eGFR Calculation mL/min/1.73m2 (Non-) (test code = 7813146749) eGFR Calculation mL/min/1.73m2 () (test code = 2764924160) KRYSTIAN (test code = KRYSTIAN) Association of [...] tests). Lab Interpretation Abnormal (test code = 44335-1) [facility]2021-02-09 22:26:00 Test Item Value Reference Range Interpretation Comments MAGNESIUM (test code = 1541575748) 1.8 mg/dL 1.7-2.4 Lab Interpretation (test code = Normal 82578-5) [facility]2021-02-09 22:25:00 Test Item Value Reference Range Interpretation Comments PHOSPHORUS (test code = 4383593371) 3.5 mg/dL 2.5-5 Lab Interpretation (test code = Normal 28859-4) [facility] DallasPROTHROMBIN TIME / [id number] 22:07:00 Test Item Value Reference Range Interpretation Comments PROTIME PATIENT (test See_Comment H [Auto mated message] code = 5964-2) The system [email or web address] generated this result transmitted ref erence range: 12.0 - 1 4.7 Seconds. The reference range was not used to int erpret this result as normal/abnormal . INR (test code = 6301-6) Nor mal INR <1.1; Warfarin Therap eutic range 2.0 to 3. 0 or 2.5 to 3.5, dep ending upon the indica tions. Lab Interpretation (test Abnormal code = 73106-9) [facility] DallasLactic Acid Whole [id number] 21:20:00 Test Item Value Reference Range Interpretation Comments LACTIC ACID (test code = 2.65 mmol/L 0.5-2.2 H 3217156365) Lab Interpretation (test code = Abnormal 91161-3) [facility] DallasXR CHEST 1 [id number] 20:19:28HISTORY: Infectious workup and NG tube verification. [...] the stomach and sidehole below the EG junction.[facility], Radiant Results Inft User - 08/05/2020 2:20 PM CSTHISTORY: Infectious workup and NG tube verification.TECHNIQUE: 2 portable AP semierect views of the chest are submitted. Noprior study available for comparison.FINDINGS: No acute pneumonia. No pneumothorax or pleural effusion orpulmonary congestion detected. Cardiac size is withinnormal limits.Central line inserted through right internal jugular [...] the stomach and sidehole below the EG junction.[facility]"
--- NOTE | 2022-03-15 23:53 | ER ---
Nurse's Notes [facility] Name: Zachary Amado Age: 41 yrs Sex: Male : 1980 Arrival Date: 03/15/2022 Time: 21:45 Bed Waiting Private MD: Diagnosis: Hematuria, unspecified Presentation: 03/15 22:14 Chief complaint: Patient states: injected bleach into bladder yesterday. now pt c/o as6 hematuria and lower abdominal pain. pt reports trying to irrigate bladder with saline and accidently grabbed the bleach. Risk Assessment: Do you want to hurt yourself or someone else? Patient reports no desire to harm self or others. Onset of symptoms was March 14, 2022. 22:14 Method Of Arrival: Wheelchair as6 22:14 Acuity: MICHEL 3 as6 Historical: - Allergies: 22:18 No Known Allergies; as6 - PMHx: 22:18 bowel obstruction; C7 tetraplegic; colostomy; paralysis; as6 - PSHx: 22:18 Colostomy; Left hip; as6 Assessment: 23:55 General: pt discharged before being seen by this RN. as6 ED Course: 21:45 Patient arrived in ED. dt4 22:01 Deisy Zamora [facility]-C [facility] kb 22:01 Dominick Partida DO is Attending Physician. kb 22:18 Triage completed. as6 22:19 Arm band placed on. as6 Administered Medications: No medications were administered Outcome: 23:53 Discharge ordered by MD. kb 23:56 Patient left the ED. as6 Signatures: Deisy Zamora FNP-C FNP-Ckb Slawson, Ashby RN RN as6 Katerina Celaya dt4
--- NOTE | 2022-03-15 23:53 | EDPHYS ---
Physician Documentation [facility] Name: Zachary Amado Age: 41 yrs Sex: Male : 1980 Arrival Date: 03/15/2022 Time: 21:45 Bed Waiting Private MD: ED Physician Dominick Partida HPI: 03/16 00:49 This 41 yrs old Male presents to ER via Wheelchair with complaints of Penile kb Bleeding. 00:49 The patient presents with urinary symptoms, hematuria. Onset: The symptoms/episode kb began/occurred yesterday. Modifying factors: The symptoms are alleviated by nothing, the symptoms are aggravated by urinating. Associated signs and symptoms: Pertinent positives: abdominal pain, hematuria, Pertinent negatives: constipation, diarrhea, dysuria, fever, nausea, vomiting. Severity of symptoms: At their worst the symptoms were moderate, in the emergency department the symptoms are unchanged. The patient has not experienced similar symptoms in the past. The patient has been recently seen by a physician: the ER physician, yesterday. Pt states he accidentally irrigated his bladder with bleach yesterday. States he was seen at [place] ER afterwards, had CT and US that were normal. Came in today because he has continued to have hematuria and suprapubic pain.. Historical: - Allergies: 03/15 22:18 No Known Allergies; as6 - PMHx: 22:18 bowel obstruction; C7 tetraplegic; colostomy; paralysis; as6 - PSHx: 22:18 Colostomy; Left hip; as6 ROS: 03/16 00:49 Constitutional: Negative for fever, chills, and weight loss. kb Abdomen/GI: Positive for abdominal pain, of the suprapubic area. : Positive for hematuria. All other systems are negative. Exam: 00:49 Constitutional: This is a well developed, well nourished patient who is awake, alert, kb and in no acute distress. Head/Face: Normocephalic, atraumatic. ENT: Moist Mucous membranes Cardiovascular: Regular rate and rhythm with a normal S1 and S2. No gallops, murmurs, or rubs. No pulse deficits. Respiratory: Respirations even and unlabored. No increased work of breathing. Talking in full sentences Skin: Warm, dry with normal turgor. Normal color. 00:49 Abdomen/GI: Inspection: abdomen appears normal, Bowel sounds: normal, Palpation: soft, in all quadrants, mild abdominal tenderness, in the suprapubic area. MDM: 03/15 22:13 Patient medically screened. kb 03/16 00:48 Data reviewed: vital signs, nurses notes. ED course: Pt was waiting in [facility] for kb available room and elected to leave without completing treatment. . 03/15 22:54 Order name: Bladder Irrigation kb Administered Medications: No medications were administered Disposition: 03:22 Co-signature as Attending Physician, Dominick Partida DO I was immediately available onsite ms3 in the emergency department for consultation in the care of the patient. Disposition Summary: 03/15/22 23:53 Discharge Ordered Location: Home kb Condition: Stable kb Diagnosis - Hematuria, unspecified kb Followup: kb - With: Emergency Department - When: As needed - Reason: Worsening of condition Followup: kb - With: Private Physician - When: 2 - 3 days - Reason: Recheck today's complaints, Continuance of care, Re-evaluation by your physician Discharge Instructions: - Discharge Summary Sheet kb - Hematuria, Adult kb Forms: - Medication Reconciliation Form kb - Thank You Letter kb - Antibiotic Education kb - Prescription Opioid Use kb Signatures: Dispatcher [employer] EDMS Deisy Zamora, TONYA-C EXTRUSION DIE CORRECTOR-Dominick Morales DO DO ms3 Lamin Plummer, RN RN as6
== END 2022-03-15 23:56 | disposition home or self-care (01) ==
LOC: ER 21:41
DX: R31.9 Hematuria, unspecified (principal)
CPT/HCPCS: 99281